=== PATIENT | male | born 1965 | race Caucasian/White ===

== ENCOUNTER 2017-08-04 11:06 | Inpatient (IN) | payer OTHER ==
[2017-08-04 11:52] VITALS: BMI 28.0
[2017-08-04] MEDS: HumaLOG 300 UNITS/3 ML VIAL SC SCH (17:10)
[2017-08-04] MEDS ORDERED: Communication Order-Pharmacy FS ONE (17:13)
[2017-08-04] MEDS ORDERED: Diazepam 5 MG TAB PO PRN (17:13)
--- NOTE | 2017-08-04 18:24 | RAD ---
CHEST ONE VIEW 08/04/17 HISTORY: 51-year-old male for preoperative evaluation for open heart surgery. Monitor leads overlie the chest. Heart size is normal. There is some healed rib fractures bilaterally . No confluent pneumonia, overt edema or pleural effusion. IMPRESSION: No significant acute intrathoracic disease. Healed rib fractures bilaterally. POS: [facility]
[2017-08-04] MEDS: Insulin Detemir 100 UNITS/ML 50 UNITS in Pre-Filled Syringe SC SCH (20:41)
[2017-08-04] MEDS: Atorvastatin Calcium 10 MG TAB PO SCH (20:42)
--- NOTE | 2017-08-05 01:59 | CON ---
DATE OF CONSULTATION: 08/04/2017 REASON FOR CONSULTATION: Evaluate the patient for coronary artery bypass grafting. HISTORY OF PRESENT ILLNESS: Mr. Chiu is a 51-year-old type 1 diabetic who has been experiencing s ome chest discomfort and arm discomfort. He underwent cardiac catheterization at the outpatient [facility] today revealing a diminutive nondominant right coronary artery. He has a significant left main st enosis along with LAD and circumflex stenoses. Potential bypass targets include LAD, diagonal and OM . PAST MEDICAL HISTORY: 1. Diabetes mellitus. 2. Hypertension. 3. Hyperlipidemia. PAST SURGICAL HISTORY: None. HOME MEDICATIONS: 1. Metformin 1000 mg b.i.d. 2. Aspirin 81 mg daily. 3. Zocor 20 mg at bedtime. 4. Synthroid 75 mcg daily. 5. Metoprolol 100 mg daily. 6. Lisinopril/hydrochlorothiazide 20/25 daily. 7. NovoLog 30 units t.i.d. 8. Levemir insulin 50 units b.i.d. ALLERGIES: None. SOCIAL HISTORY: He does not use tobacco. 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 REVIEW OF SYSTEMS: Ten point review of systems performed and is negative except as above. PHYSICAL EXAMINATION: VITAL SIGNS: Height 5 feet 8 inches, weight 184 pounds, BSA is 2. Temperature is 97.9, pulse is 75 and regular, blood pressure 139/66. HEENT: Sclerae nonicteric. Pupils equal, round bilaterally. NECK: Supple, without bruit. CHEST: Clear bilaterally. HEART: Rhythm is regular, without murmur. ABDOMEN: Soft, nontender with no masses. EXTREMITIES: No cyanosis, clubbing, edema. VASCULAR: He has palpable carotid, radial, femoral, and dorsalis pedis pulses bilaterally. VENOUS: There are no venous varicosities or venous stasis changes. PSYCHIATRIC: Patient is awake, alert, and oriented to person, place and time. LABORATORIES: Currently pending. Chest x-ray shows no dominant lung mass, lungs are well expanded bilaterally. ASSESSMENT AND PLAN: This is a pleasant 51-year-old gentleman with type 1 diabetes, hypertension, an d hyperlipidemia. His ejection fraction is preserved at approximately 60%-65%. He has severe left-s ided disease with a diminutive nondominant right coronary artery. I have discussed coronary artery b ypass grafting with the patient. He is agreeable to proceed. We will plan for surgery on Monday.
[2017-08-05 05:05] LABS: #Basophils 0.1 thou/uL (0.0-0.2); #Eosinphils 0.2 thou/uL (0.0-0.7); #Lymphocytes 3.7 thou/uL (1.20-3.40); #Monocytes 0.9 thou/uL (0.11-0.59); #Neutrophils 3.4 thou/uL (1.40-6.50); %Basophils 0.7 % (0.0-1.0); %Eosinophils 1.9 % (0.0-10.0); %Lymphocytes 45.2 % (21.0-51.0); %Neutrophils 41.2 % (42.0-75.0); Hemoglobin 14.6 g/dL (14.0-18.0); Mean Corpuscular HGB CONC 33.3 g/dL (32.0-36.0); Mean Corpuscular Hemoglobin 30.6 pg (27.0-31.0); Mean Corpuscular Volume 91.7 fl (80.0-94.0); Mean Platelet Volume 7.9 fL (7.4-10.4); Platelet Count 230 thou/uL (130-400); RBC Distribution Width 11.8 % (11.5-14.5); Red Blood Cell (RBC) Count 4.76 mill/uL (4.70-6.10); White Blood Cell (WBC) Count 8.2 thou/uL (4.8-10.8)
[2017-08-05 05:08] LABS: INR-International Normal Ratio 1.1; PTT 27.7 SEC (22.9-36.1); Prothrombin Time 14.6 SEC (12.0-14.7)
[2017-08-05] MEDS: Levothyroxine Sodium 75 MCG TAB PO SCH (05:16)
[2017-08-05 05:21] LABS: ALT (SGPT) 57 U/L (8-55); AST (SGOT) 43 U/L (5-34); Albumin 4.1 g/dL (3.5-5.0); Alkaline Phosphatase 58 U/L (40-150); Anion Gap 11 mmol/L (10-20); BUN (Urea Nitrogen) 14 mg/dL (8.4-25.7); Calc. Creatinine Clearance 92 mL/min (70-130); Calcium 9.3 mg/dL (7.8-10.44); Carbon Dioxide 28 mmol/L (22-29); Chloride 100 mmol/L (98-107); Estimated GFR-MDRD 71; Globulin 2.9 g/dL (2.4-3.5); Glucose 165 mg/dL (70-105); Magnesium 1.9 mg/dL (1.6-2.6); Phosphorus 4.2 mg/dL (2.3-4.7); Potassium 4.2 mmol/L (3.5-5.1); Sodium 135 mmol/L (136-145)
[2017-08-05] MEDS: HumaLOG 300 UNITS/3 ML VIAL SC SCH ×3 (08:18→17:08)
[2017-08-05] MEDS: Lisinopril/Hydrochlorothiazide 20/25 mg Tablet PO SCH (08:19)
[2017-08-05] MEDS: Loratadine 10 MG TAB PO SCH (08:22)
[2017-08-05] MEDS ORDERED: Prevnar 13-Val Conj/PF 0.5 ML SYRINGE IM ONE (09:00)
[2017-08-05] MEDS ORDERED: Insulin Detemir 100 UNITS/ML 50 UNITS in Pre-Filled Syringe SC SCH (09:15)
[2017-08-05] MEDS: Insulin Detemir 100 UNITS/ML 50 UNITS in Pre-Filled Syringe SC SCH ×2 (09:37→20:56)
--- NOTE | 2017-08-05 10:20 | HP ---
DATE OF SERVICE: 08/04/2017 CHIEF COMPLAINT: Unstable angina. HISTORY OF PRESENT ILLNESS: Mr. Chiu is a very pleasant 51-year-old white gentleman who comes to the hospital for direct admission for unstable angina. He had a schedule heart catheterization [facility] today that showed multivessel disease including severe left circumflex disease and severe left ofelia n disease. He has been having chest pains at rest at night, so he will need a bypass surgery and it safer to be in the hospital in this setting. Mr. Chiu currently is chest pain free and doing well . He had a right radial access catheterization, which is unremarkable at this time and without issue s. PAST MEDICAL HISTORY: 1. Hypertension. 2. Hypothyroidism. 3. Hyperlipidemia. 4. Type 1 diabetes, since he was 13 years old. ALLERGIES: No known drug allergies. FAMILY HISTORY: Father has some sort of malignancy. Mother with diabetes, grandfather from mother's side has had an UT at an early age and had hypertension. Grandmother from mother's side has stroke. Grandfather from father's side has UT as well. SOCIAL HISTORY: No alcohol, tobacco or drugs. SURGICAL HISTORY: None. REVIEW OF SYSTEMS: A 12-point review of systems was done and is all negative unless stated in the hi story of present illness except stated in the HPI. OUTPATIENT MEDICATIONS: Include, 1. Zyrtec 10 mg a day. 2. Aspirin 81 mg a day. 3. Metformin 1000 mg p.o. b.i.d. 4. Zocor 20 mg at bedtime. 5. Synthroid 75 mcg a day. 6. Metoprolol succinate 100 mg a day. 7. Lisinopril/hydrochlorothiazide 20/25 mg a day. 8. NovoLog 30 units subcu t.i.d. 9. Levemir 15 units subcu b.i.d. PHYSICAL EXAMINATION: VITAL SIGNS: Temperature 97.2, blood pressure 132/93, pulse 87, respiration rate 18, satting 99% on room air. He is 68 inches tall and he weighs 190 pounds. GENERAL: Awake, alert and oriented x3, in no distress. HEENT: Normocephalic, atraumatic. NECK: Supple. LUNGS: Clear. CARDIOVASCULAR: S1, S2, no S3, S4, no murmurs, no rubs. ABDOMEN: Soft with positive bowel sounds. EXTREMITIES: No edema. SKIN: Warm and dry. LABORATORY DATA: Laboratory work was reviewed. CBC, CMP, PT/INR, was reviewed. ASSESSMENT: 1. Severe multivessel coronary artery disease. 2. Unstable angina. 3. Type 1 diabetes. 4. Hyperlipidemia. 5. Hypertension. PLAN: 1. CT surgery consultation for evaluation of possible coronary artery bypass grafting. We will need a CURTIS to the LAD, a vein to circumflex. His RCA is severely diffusely diseased and I doubt that it would be a good target, but we will defer to CT surgery for this assessment. 2. Continue inpatient until surgery for instability of symptoms. 3. Low risk for deep venous thrombosis at this time. 4. Full code.
--- NOTE | 2017-08-05 17:22 | PDOC.CTH ---
Cardiology Progress Note - Subjective He is doing well. No chest pain, SOB. - Objective Vital Signs Temp Pulse Resp BP BP Pulse Ox 08/05/17 12:00 97.2 F L 88 17 138/82 95 08/05/17 08:19 76 135/83 08/05/17 08:00 98.1 F 76 18 135/83 94 L Weight 182 lb 9.6 oz 08/04/17 08/05/17 08/06/17 06:59 06:59 06:59 Intake Total 2720 480 Output Total 3500 Balance -780 480 - Physical Examination General/Neuro: alert & oriented x3, NAD Neck: no JVD present Lungs: CTA, unlabored respirations Heart: RRR Abdomen: NT/ND Extremities: other: (no edema) - Telemetry Telemetry Rhythm: NSR - Labs Result Diagrams: 08/05/17 04:42 08/05/17 04:42 - Assessment/Plan 1. Unstable angina 2. CAD 3. T1DM 4. HTN PLAN: - Continue home meds. - Plan on CABG monday.
[2017-08-05] MEDS: Atorvastatin Calcium 10 MG TAB PO SCH (20:47)
[2017-08-06] MEDS: Levothyroxine Sodium 75 MCG TAB PO SCH (06:17)
[2017-08-06] MEDS: Insulin Detemir 100 UNITS/ML 50 UNITS in Pre-Filled Syringe SC SCH ×2 (08:04→20:26)
[2017-08-06] MEDS: Loratadine 10 MG TAB PO SCH (08:05)
[2017-08-06] MEDS: Lisinopril/Hydrochlorothiazide 20/25 mg Tablet PO SCH (08:05)
[2017-08-06] MEDS: HumaLOG 300 UNITS/3 ML VIAL SC SCH ×4 (08:08→22:30)
[2017-08-06] MEDS ORDERED: Docusate 100 MG CAP PO PRN (16:36)
--- NOTE | 2017-08-06 16:38 | PDOC.CTH ---
Cardiology Progress Note - Subjective No new issues. No chest pain. - Objective Vital Signs Temp Pulse Resp BP BP Pulse Ox 08/06/17 12:00 97.9 F 82 19 138/75 95 08/06/17 08:05 80 140/79 08/06/17 08:00 98.2 F 80 18 140/79 94 L Weight 180 lb 14.4 oz 08/05/17 08/06/17 08/07/17 06:59 06:59 06:59 Intake Total 2720 3190 Output Total 3500 4450 Balance -780 -1260 - Physical Examination General/Neuro: alert & oriented x3, NAD Neck: no JVD present Lungs: CTA, unlabored respirations Heart: RRR Abdomen: NT/ND Extremities: other: (no edema.) - Telemetry Telemetry Rhythm: NSR - Labs Result Diagrams: 08/05/17 04:42 08/05/17 04:42 - Assessment/Plan 1. Unstable angina 2. CAD 3. T1DM 4. HTN 5. Constipation. PLAN: - Continue home meds. - Will add docusate - Plan on CABG tomorrow.
[2017-08-06] MEDS ORDERED: Docusate 100 MG CAP PO SCH (17:00)
[2017-08-06] MEDS: Atorvastatin Calcium 10 MG TAB PO SCH (20:28)
[2017-08-06] MEDS ORDERED: CEFAZOLIN/Water 2 GM/20 ML SYRINGE SLOW IVP SCH (23:30)
[2017-08-07] MEDS: Levothyroxine Sodium 75 MCG TAB PO SCH (05:08)
[2017-08-07] MEDS: Lisinopril/Hydrochlorothiazide 20/25 mg Tablet PO SCH (05:08)
[2017-08-07] MEDS ORDERED: CEFAZOLIN/Water 2 GM/20 ML SYRINGE ONE (06:12)
[2017-08-07] MEDS ORDERED: Heparin 10,000 UNITS/1 ML VIAL 30,000 UNITS in Sodium Chloride 0.9% 1,000 ML FS SCH (06:45)
[2017-08-07] MEDS ORDERED: Fentanyl 250 MCG/5 ML VIAL ONE (07:11)
[2017-08-07] MEDS ORDERED: Insulin Regular 300 UNITS/3 ML VIAL ONE (07:12)
[2017-08-07] MEDS ORDERED: Midazolam HCl 5 mg/5 ml Vial ONE (07:12)
[2017-08-07] MEDS ORDERED: Albumin 5% 0 ML ONE (08:25)
[2017-08-07] MEDS ORDERED: Phenylephrine HCL 10 MG/ML VIAL ONE (08:28)
[2017-08-07] MEDS ORDERED: hydrALAZINE 20 MG/ML VIAL SLOW IVP PRN (10:29)
[2017-08-07] MEDS ORDERED: Bisacodyl 10 MG SUPP PR PRN (10:29)
[2017-08-07] MEDS ORDERED: HYDROcodone/Acetaminophen 5/325 mg Tablet PO PRN ×2 (10:29)
[2017-08-07] MEDS ORDERED: Guaifenesin DM 100-10/5 ML UDCUP PO PRN (10:29)
[2017-08-07] MEDS ORDERED: Potassium Chloride 20 MEQ/100 ML PREMIX BAG IVPB PRN (10:29)
[2017-08-07] MEDS ORDERED: Hetastarch 6% 500 ML 500 ML IVPB PRN (10:29)
[2017-08-07] MEDS ORDERED: Promethazine HCl 25 MG/ML VIAL IM PRN (10:29)
[2017-08-07] MEDS ORDERED: Post-Op Insulin Drip Protocol IVPB ONE (10:29)
[2017-08-07] MEDS ORDERED: Norepinephrine 8 MG/0.9% NS 250 ML IVPB PRN (10:29)
[2017-08-07] MEDS ORDERED: Acetaminophen 325 MG TAB PO PRN (10:29)
[2017-08-07] MEDS ORDERED: Ondansetron HCl/PF 4 MG/2 ML Vial IVP PRN (10:29)
[2017-08-07] MEDS ORDERED: Nitroglycerin 50 MG/250 ML BOT 250 ML IVPB PRN (10:29)
[2017-08-07] MEDS ORDERED: Mag-Al 1200 mg/1200 mg/30 ML UDCUP PO PRN (10:29)
[2017-08-07] MEDS ORDERED: DOPamine 400 MG/D5W 250 ML 250 ML IVPB PRN (10:29)
[2017-08-07] MEDS ORDERED: Bisacodyl 5 MG TAB PO PRN (10:29)
[2017-08-07] MEDS ORDERED: Fentanyl 100 MCG/2 ML VIAL SLOW IVP PRN (10:29)
[2017-08-07] MEDS ORDERED: Magnesium 2 GM/NS 0.9% 100 ML 2 GM in Premix Bag 1 BAG IVPB SCH (10:30)
[2017-08-07] MEDS ORDERED: Dextrose 5% in Water 1,000 ML IV PRN (10:55)
[2017-08-07] MEDS ORDERED: Insulin Regular 300 UNITS/3 ML VIAL SC PRN (10:55)
[2017-08-07] MEDS ORDERED: Dextrose 50% Abboject 50 ML SYRINGE SLOW IVP PRN (10:55)
[2017-08-07] MEDS ORDERED: Morphine 4 MG/ML VIAL SLOW IVP PRN (11:00)
[2017-08-07 11:04] LABS: pH, Arterial 7.41 (7.35-7.45)
[2017-08-07 11:05] LABS: Actual Bicarbonate (HCO3a) 21.4 mEq/L (22-26); Base Excess (BEa) -2.5 mEq/L (0 (+/-) 2.5); CO2 Tension 34.1 mmHg (35.0-45.0); Hematocrit-ABG 34.7 % (42.0-52.0); Hemoglobin (Hb) 11.2 g/dL (14.0-18.0); O2 Tension (PaO2) 147.8 mmHg (80.0-100.0)
[2017-08-07 11:06] LABS: Calcium, Ionized 1.1 mmol/L (1.12-1.30); Puncture Site ART LINE
[2017-08-07] MEDS: Ketorolac Tromethamine 30 MG/ML VIAL IVP SCH ×3 (11:06→23:57)
[2017-08-07 11:07] LABS: Hemoglobin 11.4 g/dL (14.0-18.0); Mean Corpuscular Volume 91.1 fl (80.0-94.0); Mean Platelet Volume 7.9 fL (7.4-10.4); Platelet Count 224 thou/uL (130-400); RBC Distribution Width 11.5 % (11.5-14.5); Red Blood Cell (RBC) Count 3.68 mill/uL (4.70-6.10); White Blood Cell (WBC) Count 22.4 thou/uL (4.8-10.8)
[2017-08-07 11:07] LABS: ALV-art Gradient 237.375 (0-20)
[2017-08-07] MEDS: D5 1/2 NS w/20 mEq KCL 1,000 ML IV SCH (11:07)
[2017-08-07 11:16] LABS: INR-International Normal Ratio 1.4; PTT 30.9 SEC (22.9-36.1); Prothrombin Time 17.7 SEC (12.0-14.7)
[2017-08-07 11:24] LABS: Anion Gap 11 mmol/L (10-20); BUN (Urea Nitrogen) 14 mg/dL (8.4-25.7); Calc. Creatinine Clearance 116 mL/min (70-130); Calcium 8.2 mg/dL (7.8-10.44); Carbon Dioxide 22 mmol/L (22-29); Chloride 101 mmol/L (98-107); Estimated GFR-MDRD Greater than 90; Glucose 151 mg/dL (70-105); Potassium 3.9 mmol/L (3.5-5.1); Sodium 130 mmol/L (136-145)
[2017-08-07 11:29] LABS: Band 15 % (5-11); Eosinophils 1 % (0-10); Lymphocytes 7 % (21-51); MDiff Complete? YES; Metamyelocyte 1 % (0-0); Monocytes 6 % (0-10); Neutrophil 70 % (42-75); RBC Morphology Normal
--- NOTE | 2017-08-07 11:47 | OP ---
DATE OF PROCEDURE: 08/07/2017 PREOPERATIVE DIAGNOSES: Coronary disease/diabetes mellitus/hypertension/ hyperlipidemia. POSTOPERATIVE DIAGNOSES: Coronary disease/diabetes mellitus/hypertension/ hyperlipidemia. PROCEDURE: Coronary artery bypass grafting x3 - 1) Left internal mammary artery to 1.5 mm mid LAD - - good conduit and small diffusely diseased target. 2) Reverse saphenous vein 1.0 mm diagonal - goo d conduit with small diffusely diseased target. 3) Reverse saphenous vein 1.0 mm OM, good conduit w ith small diffusely diseased target. Note, none of these targets are redo targets. SURGEONS: Dr. Niranjan Leger and Dr. Ricardo Plunkett PUMP TIME: 56 minutes. CROSS-CLAMP TIME: 35 minutes. LOW CORE TEMP: 32-degree Celsius. HOT DIP PLATING SUPERVISOR: Damien Dooley. DRAINS: 24-Chadian chest tubes x2. DRIPS: None. TRANSFUSIONS: None. PROCEDURE IN DETAIL: After consent was obtained, the patient was brought to the operating room and p laced supine position on the operating room table. Appropriate anesthesia monitor was placed and ge neral endotracheal anesthesia induced. Chest, arms and legs were prepped and draped in usual sterile fashion. Greater saphenous vein was harvested from the left thigh utilizing an endoscopic technique . Wounds irrigated and closed in layers. The annulotomy was performed. Left internal mammary arter y was harvested as a pedicle graft. The patient was systemically heparinized. Distal pedicle was di vided and infused with papaverine. Thymic fat and pericardium ____ electrocautery. Pericardial stay sutures were placed. Aortic and atrial cannulation was performed. After adequate heparinization, r etrograde prime was performed. The patient was placed on cardiopulmonary bypass. Distal targets wer e marked. Aortic cross-clamp was applied and antegrade sanguinous cardioplegic arrest obtained. One liter of antegrade cold [place] cardioplegia was given. Topical cold solution was used. Reverse s aphenous vein was anastomosed to the OM1 and ____ with running 7-0 Prolene suture. A 1 mm probe dila ita the anastomosis, both proximally and distally. Anastomosis was tested and was hemostatic. Rever se saphenous vein anastomosed to the diagonal end-to side vascular ring with 7.0 Prolene suture. A 1 mm probe dilated the anastomosis proximally and distally. Mammary artery was brought through a wind ow in the pericardium and anastomosed to the mid-LAD in end-to-side fashion with running 7-0 Prolene suture. On release of mammary clamps, good hooding anastomosis and good distal flow. Pedicle secure d with interrupted 6-0 Prolene suture. Cross-clamp was removed and partial occluding clamp placed. Saphenous vein to the diagonal was anastomosed the aortic root. Saphenous vein to the OM was anastom osed to side wall of the diagonal graft. The cross-clamp was removed and grafts deaired. Anastomose s were inspected for hemostasis, which was good. The patient was warmed and weaned from cardiopulmon michelle bypass. After resumption of sinus rhythm, good hemodynamics, and temperature greater than 36.5, bypass was discontinued. Transfusions were given. Protamine was administered. Decannulation was pe rformed and pursestring sutures secured. Vancomycin paste was placed on the sternal edges. After ad equate hemostasis had been obtained, 24-Chadian chest tubes were placed in mediastinum. Sternum was t reated with platelet-rich plasma, and closed with #7 wire. Sternum was irrigated, treated with plate let-poor plasma, and closed in multiple layers. The patient tolerated the procedure well and was tra nsferred to the Intensive Care Unit in stable, but critical condition. Needle, sponge, and instrumen t counts were all reported as correct at the end of the procedure.
[2017-08-07] MEDS ORDERED: Cardioplegic Soln 1,000 ML BAG ONE (12:05)
[2017-08-07] MEDS ORDERED: ePHEDrine/0.9% NaCl/PF SYRINGE 50 mg/10 ml ONE (12:05)
[2017-08-07] MEDS ORDERED: Calcium Chloride 1 GM/10 ML Abboject SYRINGE ONE (12:05)
[2017-08-07] MEDS ORDERED: PHENYLEPHRINE-NS 100 MCG/ML 10 ML SYRINGE ONE (12:05)
[2017-08-07] MEDS ORDERED: Papaverine 60 MG/2 ML VIAL ONE (12:05)
[2017-08-07] MEDS ORDERED: Magnesium 5 GM/10 ML VIAL ONE (12:05)
[2017-08-07] MEDS ORDERED: Heparin 5,000 UNITS/ML VIAL ONE (12:05)
[2017-08-07] MEDS ORDERED: Sodium Bicarb 50 MEQ/50 ML VIAL ONE (12:05)
[2017-08-07] MEDS ORDERED: Lidocaine 1% PF 5 ML VIAL ONE (12:05)
[2017-08-07] MEDS ORDERED: Protamine Sulfate 250 MG/25 ML VIAL ONE (12:05)
[2017-08-07] MEDS ORDERED: Potassium Chloride 60 MEQ/30 ML VIAL ONE (12:05)
[2017-08-07] MEDS ORDERED: Albumin 25% 25 GM/100 ML BOT ONE (12:05)
[2017-08-07] MEDS ORDERED: Aminocaproic Acid 5 GM/20 ML VIAL ONE (12:05)
[2017-08-07] MEDS ORDERED: Thrombin 5000 UNITS/5 ML VIAL ONE (12:05)
[2017-08-07] MEDS ORDERED: Lidocaine 2% PF 100 mg/5 ml Syringe ONE (12:05)
[2017-08-07] MEDS ORDERED: Heparin 30,000 units/30 ml VIAL ONE (12:05)
[2017-08-07] MEDS ORDERED: PROPOFOL 200 MG/20 ML VIAL ONE (12:05)
--- NOTE | 2017-08-07 13:04 | RAD ---
PORTABLE AP CHEST RADIOGRAPH: Date: 08-07-17 History: Post open heart surgery. Comparison: 08-04-17 FINDINGS: There have been interval post-surgical changes related to CABG. Endotracheal tube is noted in place w ith the tip overlying the T4 vertebral body and above the level of the sandoval. Right subclavian centr al venous catheter is noted in place with the tip overlying the expected location of the cavoatrial j unction. Mediastinal drain is noted in place. There is atelectasis present at the left lung base and in the right midlung zone. Lungs are otherwise clear. No pneumothorax or pleural effusion is apprecia ita. No other interval change. IMPRESSION: Interval post-surgical changes related to CABG with lines and tubes in place. POS: [facility]
[2017-08-07] MEDS: Fentanyl 100 MCG/2 ML VIAL SLOW IVP PRN (14:07)
[2017-08-07] MEDS: CEFAZOLIN/Water 2 GM/20 ML SYRINGE SLOW IVP SCH ×2 (14:15→21:12)
--- NOTE | 2017-08-07 14:20 | PDOC.CTH ---
Cardiology Progress Note - Subjective He had surgery earlier today. He is intubated but awake and following commands. - Objective Vital Signs Temp Pulse Resp BP BP Pulse Ox 08/07/17 14:00 97.9 F 08/07/17 13:40 89 10 L 98 08/07/17 13:00 97.5 F L 08/07/17 12:00 97.6 F 10 L 08/07/17 11:45 97.5 F L 85 100 08/07/17 11:00 97.5 F L 08/07/17 10:45 81 108/57 L 08/07/17 05:08 82 08/07/17 04:00 98.4 F 82 18 122/64 98 Weight 186 lb 6.4 oz 08/06/17 08/07/17 08/08/17 06:59 06:59 06:59 Intake Total 3190 960 500 Output Total 4450 2250 490 Balance -1260 -1290 10 - Physical Examination General/Neuro: other: (Intubated) Neck: no JVD present Lungs: unlabored respirations Heart: RRR, other: (2 component rub) Abdomen: NT/ND Extremities: + edema B (1+) - Telemetry Telemetry Rhythm: NSR - Labs Result Diagrams: 08/07/17 10:56 08/07/17 10:56 - Assessment/Plan 1. Unstable angina 2. S/P CABG 3. Type 1 DM 4. HTN 5. Constipation. PLAN: - Continue post op care. - Aspirin and statin for life. - ACEI and BB once BP allows.
[2017-08-07 16:53] LABS: Hemoglobin 11.8 g/dL (14.0-18.0)
[2017-08-07 17:07] LABS: Potassium 4.3 mmol/L (3.5-5.1)
[2017-08-07] MEDS ORDERED: Famotidine/PF 20 mg/2ml Vial SLOW IVP SCH (21:00)
[2017-08-07] MEDS: Famotidine 40 MG/4 ML VIAL SLOW IVP SCH (21:11)
[2017-08-08] MEDS: Fentanyl 100 MCG/2 ML VIAL SLOW IVP PRN (00:52)
[2017-08-08 04:53] LABS: Anion Gap 9 mmol/L (10-20); BUN (Urea Nitrogen) 15 mg/dL (8.4-25.7); Calc. Creatinine Clearance 100 mL/min (70-130); Calcium 7.9 mg/dL (7.8-10.44); Carbon Dioxide 24 mmol/L (22-29); Chloride 104 mmol/L (98-107); Estimated GFR-MDRD 76; Glucose 168 mg/dL (70-105); Potassium 4.1 mmol/L (3.5-5.1); Sodium 133 mmol/L (136-145)
[2017-08-08 04:55] LABS: #Lymphocytes 2.4 thou/uL (1.20-3.40); #Neutrophils 6.4 thou/uL (1.40-6.50); %Basophils 0.2 % (0.0-1.0); %Eosinophils 0.1 % (0.0-10.0); %Lymphocytes 24.5 % (21.0-51.0); %Monocytes 10.4 % (0.0-10.0); %Neutrophils 64.8 % (42.0-75.0); Hemoglobin 10.7 g/dL (14.0-18.0); Mean Corpuscular HGB CONC 34.6 g/dL (32.0-36.0); Mean Corpuscular Hemoglobin 31.3 pg (27.0-31.0); Mean Corpuscular Volume 90.5 fl (80.0-94.0); Mean Platelet Volume 8.2 fL (7.4-10.4); Platelet Count 166 thou/uL (130-400); RBC Distribution Width 11.6 % (11.5-14.5); Red Blood Cell (RBC) Count 3.41 mill/uL (4.70-6.10); White Blood Cell (WBC) Count 9.9 thou/uL (4.8-10.8)
[2017-08-08] MEDS: Ketorolac Tromethamine 30 MG/ML VIAL IVP SCH ×3 (06:13→17:25)
[2017-08-08] MEDS: CEFAZOLIN/Water 2 GM/20 ML SYRINGE SLOW IVP SCH (06:22)
[2017-08-08] MEDS ORDERED: Dextrose 50% Abboject 50 ML SYRINGE SLOW IVP PRN (07:56)
[2017-08-08] MEDS: Aspirin 325 MG TAB PO SCH ×2 (07:56→08:01)
[2017-08-08] MEDS ORDERED: Dextrose 5% in Water 1,000 ML IV PRN (07:56)
--- NOTE | 2017-08-08 07:57 | RAD ---
PORTABLE AP CHEST XRAY: DATE: 08/08/17. HISTORY: Post open heart surgery. COMPARISON: 08/07/17. FINDINGS: The endotracheal tube has been removed. Right subclavian central venous catheter is stable in positi on with the tip overlying the expected location of the right atrium. Mediastinal drain is noted in p lace. Postsurgical changes related to median sternotomy are again present. The shallow depth of ins piration and portable technique accentuate the cardiac silhouette and bronchovascular markings. Ther e is atelectasis present at the medial aspect of each lung base. Remote right-sided rib fracture is again seen. There is no pneumothorax or pleural effusion identified. There does appear to be a left -sided thoracostomy tube in place. No other interval change. IMPRESSION: Interval removal of the endotracheal tube with mild improvement in interstitial densities in the karla hilar regions bilaterally. The chest is otherwise stable. POS: [facility]
[2017-08-08] MEDS: Famotidine 40 MG/4 ML VIAL SLOW IVP SCH (07:58)
[2017-08-08] MEDS: Magnesium 2 GM/NS 0.9% 100 ML 2 GM in Premix Bag 1 BAG IVPB SCH (08:01)
[2017-08-08] MEDS ORDERED: Insulin Detemir 100 UNITS/ML 40 UNITS in Pre-Filled Syringe 1 EACH SC SCH ×2 (09:00→21:00)
[2017-08-08] MEDS: Docusate 100 MG CAP PO SCH ×2 (09:26→20:42)
[2017-08-08] MEDS: HumaLOG 300 UNITS/3 ML VIAL SC PRN ×3 (11:57→20:45)
[2017-08-08] MEDS: D5 1/2 NS w/20 mEq KCL 1,000 ML IV SCH (12:45)
--- NOTE | 2017-08-08 14:30 | EKG ---
Test Reason : POST CABG Blood Pressure : / mmHG Vent. Rate : 073 BPM Atrial Rate : 073 BPM P-R Int : 146 ms QRS Dur : 082 ms QT Int : 436 ms P-R-T Axes : 053 030 -37 degrees QTc Int : 480 ms Normal sinus rhythm T wave abnormality, consider inferior ischemia Prolonged QT Abnormal ECG No previous ECGs available Confirmed by DR. Bill HUITRON ([id number]) on 08/08/2017 2:30:24 PM Referred By: Jatin MARTINS Confirmed By:DR. Bill HUITRON
--- NOTE | 2017-08-08 18:15 | PDOC.CTH ---
Cardiology Progress Note - Subjective He is doing well. He had his CT pulled out today and feels better. - Objective Vital Signs Temp Pulse Resp Pulse Ox 08/08/17 17:00 98.7 F 08/08/17 13:38 90 18 100 08/08/17 12:00 98.9 F 08/08/17 08:21 97 23 H 100 08/08/17 08:00 99.0 F 97 23 H 98 08/08/17 07:00 99.0 F Weight 188 lb 7.924 oz 08/07/17 08/08/17 08/09/17 06:59 06:59 06:59 Intake Total 960 1109 1612 Output Total 2250 1895 870 Balance -1290 -786 742 - Physical Examination General/Neuro: alert & oriented x3, NAD Neck: no JVD present Lungs: CTA, unlabored respirations Heart: RRR Abdomen: NT/ND Extremities: + edema B (1+) - Telemetry Telemetry Rhythm: NSR - Labs Result Diagrams: 08/08/17 04:18 08/08/17 04:18 - Assessment/Plan 1. Unstable angina 2. S/P CABG, CURTIS to LAD, Vein to OM, Vein to diagonal 3. Type 1 DM 4. HTN 5. Constipation. PLAN: - Continue post op care. - Aspirin and statin for life. - ACEI and BB once BP allows.
[2017-08-08] MEDS: Famotidine 20 MG TAB PO SCH (20:42)
[2017-08-08] MEDS: Insulin Glargine 40 UNITS in Pre-Filled Syringe 1 EACH SC SCH (20:42)
[2017-08-09] MEDS: Ketorolac Tromethamine 30 MG/ML VIAL IVP SCH ×5 (00:22→23:39)
[2017-08-09] MEDS: HumaLOG 300 UNITS/3 ML VIAL SC PRN ×5 (06:29→21:22)
[2017-08-09 06:43] LABS: #Lymphocytes 1.9 thou/uL (1.20-3.40); #Monocytes 1.3 thou/uL (0.11-0.59); #Neutrophils 8.7 thou/uL (1.40-6.50); %Basophils 0.2 % (0.0-1.0); %Eosinophils 0.3 % (0.0-10.0); %Lymphocytes 15.8 % (21.0-51.0); %Monocytes 11.2 % (0.0-10.0); %Neutrophils 72.5 % (42.0-75.0); Mean Corpuscular HGB CONC 34.2 g/dL (32.0-36.0); Mean Corpuscular Hemoglobin 31.2 pg (27.0-31.0); Mean Corpuscular Volume 91.4 fl (80.0-94.0); Mean Platelet Volume 8.3 fL (7.4-10.4); Platelet Count 158 thou/uL (130-400); RBC Distribution Width 11.6 % (11.5-14.5); Red Blood Cell (RBC) Count 3.53 mill/uL (4.70-6.10)
[2017-08-09 06:56] LABS: Anion Gap 12 mmol/L (10-20); BUN (Urea Nitrogen) 18 mg/dL (8.4-25.7); Calc. Creatinine Clearance 100 mL/min (70-130); Calcium 8.4 mg/dL (7.8-10.44); Carbon Dioxide 25 mmol/L (22-29); Chloride 101 mmol/L (98-107); Estimated GFR-MDRD 76; Glucose 226 mg/dL (70-105); Potassium 4.6 mmol/L (3.5-5.1); Sodium 133 mmol/L (136-145)
[2017-08-09] MEDS ORDERED: Artificial Tears 18 DROP/0.9 ML EA EYE PRN (08:12)
[2017-08-09] MEDS ORDERED: Bisacodyl 10 MG SUPP PR PRN (08:12)
[2017-08-09] MEDS ORDERED: Guaifenesin DM 100-10/5 ML UDCUP PO PRN (08:12)
[2017-08-09] MEDS ORDERED: Communication Order-Pharmacy FS SCH (08:12)
[2017-08-09] MEDS ORDERED: Zolpidem Tartrate 5 MG TAB PO PRN (08:12)
[2017-08-09] MEDS ORDERED: Mineral Oil ENEMA PR PRN (08:12)
[2017-08-09] MEDS ORDERED: Nitroglycerin 0.4 MG TAB (25 Tab Bottle) SL PRN (08:12)
[2017-08-09] MEDS ORDERED: Bisacodyl 5 MG TAB PO PRN (08:12)
[2017-08-09] MEDS ORDERED: diphenhydrAMINE 25 MG CAP PO PRN (08:12)
[2017-08-09] MEDS ORDERED: Mag-Al 1200 mg/1200 mg/30 ML UDCUP PO PRN (08:12)
--- NOTE | 2017-08-09 08:35 | PDOC.CTH ---
Cardiology Progress Note - Subjective He is doing better today. Chest is sore. Passing gas. - Objective Vital Signs Temp 08/09/17 08:00 98.5 F Weight 187 lb 2.759 oz 08/08/17 08/09/17 08/10/17 06:59 06:59 06:59 Intake Total 1109 2011 240 Output Total 1895 2155 240 Balance -786 -143 0 - Physical Examination General/Neuro: alert & oriented x3, NAD Neck: no JVD present Lungs: unlabored respirations Heart: RRR Abdomen: NT/ND Extremities: + edema B (1+) - Telemetry Telemetry Rhythm: S tach - Labs Result Diagrams: 08/09/17 06:36 08/09/17 06:36 - Assessment/Plan 1. Unstable angina 2. S/P CABG, CURTIS to LAD, Vein to OM, Vein to diagonal 3. Type 1 DM 4. HTN 5. Constipation. PLAN: - Continue post op care. - Aspirin and statin for life. - Low dose BB today. - Increase PT as tolerated. - May transfer to telemetry floor.
[2017-08-09] MEDS: Docusate 100 MG CAP PO SCH ×2 (08:37→21:20)
[2017-08-09] MEDS: Magnesium 2 GM/NS 0.9% 100 ML 2 GM in Premix Bag 1 BAG IVPB SCH (08:38)
[2017-08-09] MEDS: Famotidine 20 MG TAB PO SCH ×2 (08:40→21:20)
[2017-08-09] MEDS: Insulin Glargine 40 UNITS in Pre-Filled Syringe 1 EACH SC SCH ×2 (08:41→21:20)
[2017-08-09] MEDS: Metoprolol Tartrate 25 MG TAB PO SCH ×2 (08:43→21:21)
[2017-08-09] MEDS: Aspirin 325 mg Enteric Coated Tablet PO SCH (08:43)
--- NOTE | 2017-08-09 09:33 | RAD ---
CHEST 1 VIEW: Date: 08/09/17 HISTORY: Heart surgery. Follow-up. COMPARISON: 08/08/17. FINDINGS: Cardiac silhouette is magnified and upper limits of normal in size. Pulmonary vasculature unremarkabl e. Left basilar atelectasis is unchanged. Mediastinum midline with postoperative changes and a right subclavian central venous catheter. No evidence of pneumothorax. athletic monitor leads overlie the ch est. IMPRESSION: Stable postoperative appearance of the chest. POS: [facility]
[2017-08-10] MEDS: Ketorolac Tromethamine 30 MG/ML VIAL IVP SCH ×2 (05:46→12:38)
[2017-08-10] MEDS: HumaLOG 300 UNITS/3 ML VIAL SC PRN ×4 (07:58→21:22)
[2017-08-10] MEDS: Metoprolol Tartrate 25 MG TAB PO SCH ×2 (08:46→21:22)
[2017-08-10] MEDS: Famotidine 20 MG TAB PO SCH ×2 (08:46→21:20)
[2017-08-10] MEDS: Docusate 100 MG CAP PO SCH ×2 (08:46→21:20)
[2017-08-10] MEDS: Aspirin 325 mg Enteric Coated Tablet PO SCH (08:46)
[2017-08-10] MEDS: INSULIN GLARGINE SC SCH ×2 (08:47→21:21)
--- NOTE | 2017-08-10 18:20 | PDOC.CTH ---
Cardiology Progress Note - Subjective He is doing well. He has been walking without issues. He has had BM's. - Objective Vital Signs Temp Pulse Pulse Pulse Resp BP BP 08/10/17 16:00 98.6 F 96 20 08/10/17 13:14 93 89 162/74 H 137/78 08/10/17 09:57 95 94 136/78 121/67 08/10/17 08:00 98.7 F 91 20 BP BP Pulse Ox Pulse Ox Pulse Ox 08/10/17 16:00 133/68 95 08/10/17 13:14 95 93 L 08/10/17 09:57 95 93 L 08/10/17 08:00 117/71 94 L Weight 178 lb 8 oz 08/09/17 08/10/17 08/11/17 06:59 06:59 06:59 Intake Total 2011 Output Total 2155 1040 Balance -143 -800 - Physical Examination General/Neuro: alert & oriented x3, NAD Neck: no JVD present Lungs: CTA, unlabored respirations Heart: RRR Abdomen: NT/ND Extremities: + edema B (trace) - Telemetry Telemetry Rhythm: NSR - Labs Result Diagrams: 08/09/17 06:36 08/09/17 06:36 - Assessment/Plan 1. Unstable angina 2. S/P CABG, CURTIS to LAD, Vein to OM, Vein to diagonal 3. Type 1 DM 4. HTN PLAN: - Aspirin and statin for life. - Low dose BB. - Will start low dose ACEI. - Increase PT as tolerated. - Home any time from cardiac perspective,
--- NOTE | 2017-08-11 08:20 | DIS ---
DIAGNOSES: 1. Type 1 diabetes mellitus. 2. Coronary artery disease. 3. Hyperlipidemia. 4. Hypertension. PROCEDURES: 1. Cardiac catheterization. 2. Coronary bypass grafting x3 -- left internal mammary artery to LAD, reverse saphenous vein to homa gonal, reverse saphenous vein to OM. DESCRIPTION OF HOSPITAL STAY: Mr. Chiu is a 51-year-old type 1 diabetic who was admitted with mari st and arm discomfort. He underwent cardiac catheterization at the outpatient center and this reveal ed left main stenosis with a diminutive right coronary artery. He was admitted to [facility] coronary bypass grafting on 08/07/2017. Postoperatively, he has done well. He has managed hi s own sugars while he has been here. He has had no rhythm disturbances. At the time of discharge, clement cabrera is ambulatory, tolerating a regular diet, having good bowel and bladder function. Incisions are cl janessa and dry without evidence of infection. DISCHARGE MEDICATIONS: 1. Aspirin 325 mg every day. 2. Synthroid 75 mcg daily. 3. Zestril 5 mg daily. 4. Toprol-XL 12.5 mg daily. 6. Metformin 1000 mg b.i.d. 6. Zocor 20 mg at bedtime. 7. Insulin per his home regimen. FOLLOWUP: Follow up is with me in [address] Paulino in 1 month.
[2017-08-11] MEDS: Metoprolol Tartrate 25 MG TAB PO SCH (08:26)
[2017-08-11] MEDS: Famotidine 20 MG TAB PO SCH (08:26)
[2017-08-11] MEDS: Aspirin 325 mg Enteric Coated Tablet PO SCH (08:26)
[2017-08-11] MEDS: INSULIN GLARGINE SC SCH (08:27)
[2017-08-11] MEDS: Docusate 100 MG CAP PO SCH (08:27)
[2017-08-11] MEDS ORDERED: Lisinopril 5 MG TAB PO SCH (09:00)
[2017-08-11 09:38] VITALS: TEMP 99
[2017-08-11 11:56] VITALS: BP 172/82
[2017-08-11] MEDS: HumaLOG 300 UNITS/3 ML VIAL SC PRN (12:21)
[2017-08-11] MEDS ORDERED: Atorvastatin Calcium 40 MG TAB PO SCH (21:00)
== END 2017-08-11 13:45 | disposition home or self-care (01) | DRG 236 ==
LOC: EEVIPCON 11:06 → 2NO 11:06 → CCU 08-07 06:56 → 2NO 08-09 09:08
PROVIDERS: ADMIT Internal Medicine Cardiovascular Disease; ATTEND Internal Medicine Cardiovascular Disease
PROC: 02100Z9 Bypass Coronary Artery, One Artery from Left Internal Mammary, Open Approach (ICD-10-PCS; principal; 2017-08-07)
PROC: 021109W Bypass Coronary Artery, Two Arteries from Aorta with Autologous Venous Tissue, Open Approach (ICD-10-PCS; 2017-08-07)
PROC: 06BQ4ZZ Excision of Left Saphenous Vein, Percutaneous Endoscopic Approach (ICD-10-PCS; 2017-08-07)
PROC: 03B10ZZ Excision of Left Internal Mammary Artery, Open Approach (ICD-10-PCS; 2017-08-07)
PROC: 5A1221Z Performance of Cardiac Output, Continuous (ICD-10-PCS; 2017-08-07)
PROC: B24BZZ4 Ultrasonography of Heart with Aorta, Transesophageal (ICD-10-PCS; 2017-08-07)
DX: I25.110 Atherosclerotic heart disease of native coronary artery with unstable angina pectoris (principal); E78.5 Hyperlipidemia, unspecified; I10 Essential (primary) hypertension; E10.9 Type 1 diabetes mellitus without complications; Z79.4 Long term (current) use of insulin; K59.00 Constipation, unspecified; Z79.82 Long term (current) use of aspirin; Z79.84 Long term (current) use of oral hypoglycemic drugs
CPT/HCPCS: 36415; 36416; 71045; 80048; 80053; 82805; 83735; 84100; 85025; 85610; 85730; 86850; 86900; 86901; 93005; 93010; 93798; 94002; 94640; J1642; J1644; J1815; J1885; J2001; J2250; J2370; J2440; J2704; J2720; J3010; J3370; J3475; J3480; J7050; J7620; P9045; P9047; S0017

== ENCOUNTER 2017-11-12 11:44 | Inpatient (IN) | payer OTHER ==
[2017-11-12 12:11] LABS: #Basophils 0.1 thou/uL (0.0-0.2); #Eosinphils 0.2 thou/uL (0.0-0.7); #Lymphocytes 2.4 thou/uL (1.20-3.40); #Monocytes 0.9 thou/uL (0.11-0.59); #Neutrophils 7.3 thou/uL (1.40-6.50); %Basophils 0.8 % (0.0-1.0); %Eosinophils 1.8 % (0.0-10.0); %Lymphocytes 22.2 % (21.0-51.0); %Monocytes 7.9 % (0.0-10.0); %Neutrophils 67.4 % (42.0-75.0); Hemoglobin 12.8 g/dL (14.0-18.0); Mean Corpuscular HGB CONC 32.9 g/dL (32.0-36.0); Mean Corpuscular Hemoglobin 26.7 pg (27.0-31.0); Mean Corpuscular Volume 81.2 fL (78.0-98.0); Mean Platelet Volume 8.9 fL (7.4-10.4); Platelet Count 391 thou/uL (130-400); Red Blood Cell (RBC) Count 4.78 mill/uL (4.70-6.10); White Blood Cell (WBC) Count 10.8 thou/uL (4.8-10.8)
[2017-11-12 12:31] LABS: ALT (SGPT) 31 U/L (8-55); AST (SGOT) 21 U/L (5-34); Albumin 4.3 g/dL (3.5-5.0); Alkaline Phosphatase 87 U/L (40-150); Anion Gap 16 mmol/L (10-20); BUN (Urea Nitrogen) 14 mg/dL (8.4-25.7); Bilirubin, Total 0.9 mg/dL (0.2-1.2); Calc. Creatinine Clearance 0 mL/min (70-130); Calcium 10.1 mg/dL (7.8-10.44); Carbon Dioxide 24 mmol/L (22-29); Chloride 101 mmol/L (98-107); Estimated GFR-MDRD 61; Globulin 4.1 g/dL (2.4-3.5); Glucose 231 mg/dL (70-105); Potassium 4.5 mmol/L (3.5-5.1); Protein, Total 8.4 g/dL (6.0-8.3); Sodium 136 mmol/L (136-145)
[2017-11-12 12:33] LABS: CKMB 2.9 ng/mL (0-6.6)
[2017-11-12 12:38] LABS: Troponin I 0.783 ng/mL (< 0.028)
[2017-11-12] MEDS ORDERED: Nitroglycerin 0.4 MG TAB (25 Tab Bottle) ONE (12:59)
[2017-11-12] MEDS ORDERED: Enoxaparin Sodium 100 MG/ML SYRINGE ONE (13:18)
[2017-11-12] MEDS ORDERED: Enoxaparin Sodium 80 MG/0.8 ML SYRINGE ONE (13:24)
[2017-11-12 13:48] LABS: Critical Call Chem Troponin I RESULT DECREASING; Troponin I 0.685 ng/mL (< 0.028)
--- NOTE | 2017-11-12 14:04 | RAD ---
PORTABLE CHEST: HISTORY: Chest pain. COMPARISON: 08/09/17. FINDINGS: Lungs are clear. Vascular markings normal. Heart size within normal range with postop sternotomy ch anges again noted. Rib deformities on the right again noted from old fractures. IMPRESSION: Unremarkable portable chest. POS: [facility]
[2017-11-12] MEDS ORDERED: ISOVUE-370 76%-LOCM 1 ML ONE (15:05)
[2017-11-12 15:19] VITALS: BMI 28.0
[2017-11-12 16:55] LABS: Troponin I 0.958 ng/mL (< 0.028)
--- NOTE | 2017-11-12 18:00 | CON ---
DATE OF CONSULTATION: 11/12/2017 REASON FOR CONSULTATION: Chest pain, elevated troponins. HISTORY OF PRESENT ILLNESS: Mr. Figueroa is a pleasant 61-year-old white gentleman, very well known to myself who comes to the hospital for chest burning. He had bypass surgery just 3 months ago. He had a CURTIS to the LAD and a vein graft to a diagonal and jump to an OM. He was in [place] about a week ago for a school and he started having chest burning and went to the ER in [place] and was found to have elevated troponins, so he was taken to the [facility] where he had a very complex intervention of his left circumflex. He had a laser atherectomy as well as rotational atherectomy to the artery and had successful placement of a 2.5 mm stent. He did well after that. No more chest pain, tightness or pressure, came to my office . He had an episode of shortness of breath with exertion, but has not had anymore chest burning. Today , he started having chest burning again, so decided to come in for evaluation. Currently symptom free. PAST MEDICAL HISTORY: 1. Hypertension. 2. Hypothyroidism. 3. Hyperlipidemia. 4. Type 1 diabetes since he was 13 years old. OUTPATIENT MEDICATIONS: 1. Simvastatin 40 mg at bedtime. 2. NovoLog. 3. Aspirin 81 a day. 4. Lisinopril 20 mg b.i.d. 5. Insulin Levemir 6 units b.i.d. 6. Zyrtec 10 mg a day. 7. Brilinta 90 mg b.i.d. 8. Metoprolol 50 mg a day. 9. Synthroid 75 mcg a day. ALLERGIES: No known drug allergies. SOCIAL HISTORY: No alcohol, tobacco or drugs. PAST SURGICAL HISTORY: CABG x2 as above. FAMILY HISTORY: Noncontributory. REVIEW OF SYSTEMS: A 12-point review of systems was done and is all negative unless stated in the history of present illness. PHYSICAL EXAMINATION: VITAL SIGNS: Temperature 98.3, pulse 82, respiration rate 18, satting 98% on room air, blood pressure 153/70. GENERAL: Awake, alert, oriented x3, in no distress. HEENT: Normocephalic, atraumatic. NECK: Supple. LUNGS: Clear. CARDIOVASCULAR: S1, S2, no S3, S4, no murmurs. ABDOMEN: Soft, otherwise. EXTREMITIES: No edema. SKIN: Warm and dry. LABORATORY WORK: Reviewed. CBC: Hemoglobin of 12.8, hematocrit 38, white count of 10 and platelet count of 391. Chemistry is unremarkable except for glucose of 231. Albumin of 4.3. His troponin I's 0.78 and 0.68, but a normal CK-MB. EKG was reviewed. Chest x-ray was reviewed which is unremarkable. There is a rib deformity in the right from old fractures and sternotomy. ASSESSMENT AND PLAN: 1. Non-ST elevation myocardial infarction. This troponin elevation may be related to some other cause. We will rule out PE with a CT per PE protocol. We will get a repeat echocardiogram to evaluate her left ventricular function and valvular structures. He had a normal ejection fraction back in July of this year before his bypass. 2. Coronary artery disease status post left internal mammary artery to the left anterior descending and vein graft to the diagonal with jump to an obtuse marginal. More recently status post stent to his left circumflex very, very complex procedure about a week ago. 3. Type 1 diabetes. Thank you for this particular patient. We will follow. DISPOSITION: 1. We will continue to trend troponins. If troponins remain at just low, but positive level this is more likely a troponin leak. If it continues to trend down, he could also just be his troponin coming down from the recent procedure that he had which was extremely complex. Concern for occlusio nof the jump graft to the OM given better flow from the LCx intervention. 2. Echocardiogram. We will let us know if there has been any heart damage that has been reduced in the LV function. We will plan on doing a heart catheterization tomorrow. 3. We will follow. [facility]
--- NOTE | 2017-11-12 18:38 | CT ---
CT ANGIOGRAM OF THE CHEST: Date: 11-12-17 History: Chest pain, history of CABG and cardiac stents, shortness of breath, assess for pulmonary em bolism. Technique: Serial axial CT imaging obtained at 2.5 mm intervals from the thoracic inlet through the u pper abdomen with IV contrast using a CT angiogram protocol. Coronal and oblique sagittal 3D reformat ita imaging obtained. FINDINGS: There is no axillary, mediastinal, or hilar lymphadenopathy. The imaged upper abdomen demonstrates no acute findings. There is subtle irregularity involving the p eripheral margin of the liver with subtle varices in the right upper quadrant which could signify seq uellae of hepatocellular disease. Clinical correlation is essential. There is nonspecific mild distal esophageal thickening. Midline sternotomy wires and mediastinal clip s are present. There is adequate opacification of the pulmonary arterial vasculature. No discrete filling defect is seen within the pulmonary arterial vasculature to suggest the presence of acute pulmonary embolus. No pneumothorax is seen on either side. The lung parenchymal demonstrates no cute findings. No acute osseous abnormality. IMPRESSION: 1. No evidence for pulmonary embolism. Incidental findings as detailed above. POS: [facility]
[2017-11-12] MEDS ORDERED: Dextrose 50% Abboject 50 ML SYRINGE IVP PRN (19:23)
[2017-11-12] MEDS ORDERED: HumaLOG 300 UNITS/3 ML VIAL SC PRN (19:23)
[2017-11-12] MEDS ORDERED: Dextrose 5% in Water 1,000 ML IV PRN (19:23)
[2017-11-12] MEDS ORDERED: Loratadine 10 MG TAB PO PRN (19:28)
[2017-11-12] MEDS: Insulin Glargine 60 UNITS in Pre-Filled Syringe 1 EACH SC SCH (20:15)
[2017-11-12] MEDS: TICAGRELOR 90 MG TABLET PO SCH (20:16)
[2017-11-12] MEDS ORDERED: Simvastatin 40 MG TAB PO SCH (21:00)
--- NOTE | 2017-11-12 23:35 | HP ---
DATE OF ADMISSION: 11/12/2017 CHIEF COMPLAINT: Chest pain. HISTORY OF PRESENT ILLNESS: This is a 51-year-old male patient of Dr. Tuan Leger who ca me to the emergency room today after experiencing an acute onset of discomfort in his left upper ches t that then progressed to a burning sensation across his whole chest. He had just had [address] within the last 2 weeks while he was in [place] on a trip. Prior to that, he had had a 2-vessel CA BG in August done here by Dr. Niranjan Leger and he had been told that a burning sensation in his chest w as his sign of cardiac injury, so he came to the emergency room. He did say he was feeling clammy. He denied any shortness of breath. This all happened at rest. He denies any nausea or any discomfor t up to the jaw or any radiation of this pain other than across his chest. The other thing he noted was that his blood pressure initially this morning was in the low 100s, 110 and 111 and it progressed over the next hour or two up into the 150s/110s. He is not typically taking his nitroglycerin, but he did at that point. The pain lasted for at least an hour and a half while he decided to come into the emergency room. Upon arrival in the emergency room, EKG was minimally abnormal with no true evid ence of ST-T wave elevation or depression, but his troponins were definitely off. The patient states that his troponin when he was in [place] prior to getting his stents was well over 100, at one point over 500. So his troponins here were barely positive relatively speaking. Currently in the room he is not having any complaints of pain. PAST MEDICAL HISTORY: Positive for type 1 diabetes, hypothyroidism, known atherosclerotic coronary v ascular disease with hypertension and hyperlipidemia. PAST SURGICAL HISTORY: Positive for CABG x2 in [place] by Dr. Leger, one being in vein and other being L CIERRA. He had stents placed in 3 vessels in [place] this month. I do not believe he has had any other surgeries. ALLERGIES: He has no known drug allergies. CURRENT MEDICATIONS: He has been placed on Brilinta 90 mg twice a day, aspirin 81 mg daily, Zocor 40 mg daily, metoprolol 50 mg daily, lisinopril 20 mg twice a day. He is on Synthroid 75 mcg daily, Le vemir 6 units twice a day, NovoLog 34 units 3 times a day and he also takes Zyrtec almost every day o f 10 mg. SOCIAL HISTORY: He is a clerical dentist assistant. No toxic habits. FAMILY HISTORY: His father of some unknown malignancy. His mother had diabetes. Maternal shailesh quionnez of an ID at a very young age. Maternal grandmother had a CVA. Paternal grandfather als o of an ID, but more elderly age. REVIEW OF SYSTEMS: Patient denies any headache, no fever or chills. No troubles with vision changes , no troubles with chewing or swallowing. Denies any shortness of breath. No chest heaviness. Did have the chest burning as described above. Denies any nausea or vomiting. No abdominal pain, no homa rrhea or constipation. Denies any hematochezia, changes in his bowels, no diarrhea, bright red blood per rectum. Denies any dysuria or hematuria. Denies any paresis or paresthesias. Denies any psych iatric symptoms. No homicidal or suicidal ideations. No auditory or visual hallucinations. PHYSICAL EXAMINATION: GENERAL: On examination, patient is resting in bed comfortably, very pleasant. VITAL SIGNS: Temperature 98.3, pulse 82, respiration is 18, satting 98% on room air, BP is 150s/70s. HEENT: Normocephalic and atraumatic cranium. He does wear glasses. His pupils are equal, round, an d reactive to light and accommodations. Extraocular movements are intact. His sclera is anicteric. NECK: Supple, no JVD, no bruits, no thyromegaly, no lymphadenopathy. HEART: S1, S2, with no rubs, murmurs, or gallops. Has a very well healed median sternotomy scar. LUNGS: Clear to auscultation bilaterally with no rales, rhonchi or wheezes. ABDOMEN: Soft, nontender, nondistended, slightly obese. No hepatosplenomegaly palpated. Bowel soun ds throughout. GENITOURINARY: Exam is deferred. EXTREMITIES: He has palpable pulses x4. No cyanosis, clubbing or edema. He does have noted vitilig o above the head and neck area. NEUROLOGIC: Cranial nerves II-XII are equal and symmetrical, grossly intact bilaterally. No motor o r sensory deficits appreciated. LABORATORY DATA AND IMAGING DATA: White count is 10.8, hemoglobin and hematocrit is 12.8 and 38.8 re spectively with 391,000 platelets, no left shift. His sodium is 136, potassium 4.5, chloride 101, bi carb 24, BUN is 14, creatinine is 1.24, glucose of 231, ALT is 31, and AST is 21. CK-MB is 2.9. Tro ponin 1 was 0.78. Troponin 2 was 0.68. Troponin [address] angio was done and was negative for PE. Chest x-ray was essentially negative other than remote rib injury. ASSESSMENT AND PLAN: Chest pain with known atherosclerotic coronary vascular disease with elevated t roponin. Right now has been called non-STEMI. He is status post stents recently and 2-vessel CABG o nly 3 months ago. He also has type 1 diabetes and hypothyroidism. We will continue his routine meds . He has been on for his diabetes and hypothyroidism. We will check a TSH while he is here. We elder l continue to do more monitoring of his troponin and will add a myoglobin to that. Dr. Paulino has al ready seen him and will plan on doing an echo tomorrow. Dr. Leger will assume care of him in the [facility].
[2017-11-12 23:49] LABS: Troponin I 2.416 ng/mL (< 0.028)
[2017-11-13] MEDS ORDERED: Nitroglycerin 2% Ointment 1 INCH/1 GM Packet TOP PRN (01:25)
[2017-11-13] MEDS ORDERED: Calcium Carbonate 500 MG ChewTAB PO PRN (01:25)
[2017-11-13] MEDS ORDERED: Famotidine 20 MG TAB PO SCH (01:30)
[2017-11-13 04:33] LABS: Troponin I 4.617 ng/mL (< 0.028)
[2017-11-13] MEDS: Levothyroxine Sodium 75 MCG TAB PO SCH (05:01)
[2017-11-13 07:14] LABS: Troponin I 6.232 ng/mL (< 0.028)
[2017-11-13] MEDS: Sodium Chloride 0.9% 1,000 ML IV SCH ×2 (08:07→20:20)
[2017-11-13] MEDS: Aspirin 81 mg Enteric Coated Tablet PO SCH (08:11)
[2017-11-13] MEDS ORDERED: Loratadine 10 MG TAB PO SCH (09:00)
[2017-11-13] MEDS ORDERED: Iopamidol 370 76% 50 ML VIAL FS ONE (10:03)
[2017-11-13] MEDS ORDERED: Iopamidol 370 76% 100 ML VIAL ONE (10:03)
[2017-11-13] MEDS: TICAGRELOR 90 MG TABLET PO SCH (10:21)
[2017-11-13] MEDS: Simvastatin 40 MG TAB PO SCH (10:23)
[2017-11-13] MEDS: Insulin Glargine 60 UNITS in Pre-Filled Syringe 1 EACH SC SCH ×2 (10:23→20:52)
[2017-11-13] MEDS: Lisinopril 20 MG TAB PO SCH (10:23)
[2017-11-13] MEDS: HumaLOG 300 UNITS/3 ML VIAL SC SCH ×3 (10:25→17:06)
[2017-11-13] MEDS ORDERED: Fentanyl 100 MCG/2 ML VIAL ONE (12:46)
[2017-11-13] MEDS ORDERED: Midazolam HCl 2 mg/2 ml Vial ONE (12:46)
[2017-11-13] MEDS ORDERED: Heparin 10,000 UNITS/1 ML VIAL ONE (13:55)
[2017-11-13] MEDS ORDERED: Aggrastat 12.5 MG/250 ML 250 ML ONE (13:56)
[2017-11-13] MEDS ORDERED: Nitroglycerin 0.4 MG TAB (25 Tab Bottle) SL PRN (14:15)
[2017-11-13] MEDS ORDERED: Aggrastat 12.5 MG/250 ML 250 ML IVPB SCH (14:15)
[2017-11-13] MEDS ORDERED: Sodium Chloride 0.9% 1,000 ML IV SCH (14:30)
[2017-11-13 14:57] LABS: #Lymphocytes 2.9 thou/uL (1.20-3.40); #Neutrophils 7.2 thou/uL (1.40-6.50); %Basophils 0.2 % (0.0-1.0); %Eosinophils 0.4 % (0.0-10.0); %Lymphocytes 26.4 % (21.0-51.0); %Monocytes 8.7 % (0.0-10.0); %Neutrophils 64.3 % (42.0-75.0); Hemoglobin 11.4 g/dL (14.0-18.0); Mean Corpuscular HGB CONC 33.1 g/dL (32.0-36.0); Mean Corpuscular Hemoglobin 26.3 pg (27.0-31.0); Mean Corpuscular Volume 79.4 fL (78.0-98.0); Mean Platelet Volume 8.5 fL (7.4-10.4); Platelet Count 380 thou/uL (130-400); Red Blood Cell (RBC) Count 4.34 mill/uL (4.70-6.10); White Blood Cell (WBC) Count 11.1 thou/uL (4.8-10.8)
[2017-11-13 15:54] LABS: Troponin I 6.714 ng/mL (< 0.028)
[2017-11-13 15:55] LABS: CKMB 31.8 ng/mL (0-6.6)
--- NOTE | 2017-11-13 18:42 | PRG ---
DATE OF SERVICE: 11/13/2017 SUBJECTIVE: Mr. Figueroa in the hospital days having no further chest pain. It is noted his troponi ns have been serially elevated now above 6. PHYSICAL EXAMINATION: VITAL SIGNS: Blood pressure is 116/56, heart rate 77, O2 sat 100%. GENERAL: He is uncomfortable and alert. LUNGS: Clear. HEART: Reveals no murmur. LABORATORY DATA: Troponin is 6.74. IMPRESSION: 1. Coronary artery disease. 2. Elevated troponins. PLAN: I have notified Dr. Paulino. He was taken to the labeling specialist for further treatment and evaluation . I have notified the patient of the need for this. He is in agreement. We will proceed.
[2017-11-13 20:40] LABS: #Basophils 0.1 thou/uL (0.0-0.2); #Eosinphils 0.1 thou/uL (0.0-0.7); #Neutrophils 5.9 thou/uL (1.40-6.50); %Basophils 0.7 % (0.0-1.0); %Eosinophils 0.6 % (0.0-10.0); %Lymphocytes 29.8 % (21.0-51.0); %Monocytes 10.3 % (0.0-10.0); %Neutrophils 58.6 % (42.0-75.0); Hemoglobin 11.1 g/dL (14.0-18.0); Mean Corpuscular HGB CONC 32.3 g/dL (32.0-36.0); Mean Corpuscular Hemoglobin 25.8 pg (27.0-31.0); Mean Corpuscular Volume 79.8 fL (78.0-98.0); Mean Platelet Volume 8.5 fL (7.4-10.4); Platelet Count 381 thou/uL (130-400); RBC Distribution Width 15.2 % (11.5-14.5); Red Blood Cell (RBC) Count 4.31 mill/uL (4.70-6.10)
[2017-11-13] MEDS: Famotidine 20 MG TAB PO SCH (20:52)
[2017-11-13 21:41] LABS: CKMB 29.2 ng/mL (0-6.6); Critical Call CKMBM RESULT DECREASING
[2017-11-13 21:43] LABS: Troponin I 9.807 ng/mL (< 0.028)
[2017-11-14] MEDS ORDERED: Propofol 1,000 MG/100 ML VIAL IV ONE (01:39)
[2017-11-14 02:22] LABS: #Basophils 0.1 thou/uL (0.0-0.2); #Eosinphils 0.1 thou/uL (0.0-0.7); #Lymphocytes 2.9 thou/uL (1.20-3.40); #Monocytes 0.9 thou/uL (0.11-0.59); #Neutrophils 4.3 thou/uL (1.40-6.50); %Eosinophils 1.2 % (0.0-10.0); %Lymphocytes 35.3 % (21.0-51.0); %Monocytes 10.4 % (0.0-10.0); %Neutrophils 52.2 % (42.0-75.0); Hemoglobin 10.8 g/dL (14.0-18.0); Mean Corpuscular HGB CONC 33.4 g/dL (32.0-36.0); Mean Corpuscular Hemoglobin 26.8 pg (27.0-31.0); Mean Platelet Volume 8.5 fL (7.4-10.4); Platelet Count 353 thou/uL (130-400); RBC Distribution Width 15.2 % (11.5-14.5); Red Blood Cell (RBC) Count 4.04 mill/uL (4.70-6.10); White Blood Cell (WBC) Count 8.2 thou/uL (4.8-10.8)
[2017-11-14 02:51] LABS: CKMB 21.6 ng/mL (0-6.6); Critical Call CKMBM RESULT DECREASING
[2017-11-14 02:52] LABS: ALT (SGPT) 25 U/L (8-55); AST (SGOT) 46 U/L (5-34); Albumin 3.5 g/dL (3.5-5.0); Alkaline Phosphatase 69 U/L (40-150); Anion Gap 13 mmol/L (10-20); BUN (Urea Nitrogen) 12 mg/dL (8.4-25.7); Bilirubin, Total 0.8 mg/dL (0.2-1.2); Calc. Creatinine Clearance 112 mL/min (70-130); Calcium 8.9 mg/dL (7.8-10.44); Carbon Dioxide 20 mmol/L (22-29); Chloride 107 mmol/L (98-107); Estimated GFR-MDRD 88; Globulin 3.2 g/dL (2.4-3.5); Glucose 107 mg/dL (70-105); Protein, Total 6.7 g/dL (6.0-8.3); Sodium 136 mmol/L (136-145)
[2017-11-14 02:53] LABS: Critical Call Chem Troponin I RESULT DECREASING; Troponin I 8.565 ng/mL (< 0.028)
[2017-11-14] MEDS: Levothyroxine Sodium 75 MCG TAB PO SCH (05:47)
[2017-11-14] MEDS: Sodium Chloride 0.9% 1,000 ML IV SCH ×2 (05:58→12:07)
--- NOTE | 2017-11-14 07:08 | EKG ---
Test Reason : Blood Pressure : / mmHG Vent. Rate : 081 BPM Atrial Rate : 081 BPM P-R Int : 138 ms QRS Dur : 082 ms QT Int : 372 ms P-R-T Axes : 064 032 139 degrees QTc Int : 432 ms Normal sinus rhythm Abnormal ECG When compared with ECG of 12-NOV-2017 12:59, (Unconfirmed) T wave inversion no longer evident in Inferior leads T wave inversion now evident in Anterior leads Confirmed by MICHELA WARREN ([id number]) on 11/14/2017 7:08:12 AM Referred By: PADDY Confirmed By:MICHELA WARREN
[2017-11-14 08:31] LABS: #Basophils 0.1 thou/uL (0.0-0.2); #Eosinphils 0.1 thou/uL (0.0-0.7); #Lymphocytes 2.3 thou/uL (1.20-3.40); #Monocytes 0.9 thou/uL (0.11-0.59); #Neutrophils 4.4 thou/uL (1.40-6.50); %Basophils 0.8 % (0.0-1.0); %Eosinophils 1.2 % (0.0-10.0); %Lymphocytes 29.3 % (21.0-51.0); %Neutrophils 56.7 % (42.0-75.0); Hemoglobin 10.7 g/dL (14.0-18.0); Mean Corpuscular HGB CONC 32.8 g/dL (32.0-36.0); Mean Corpuscular Hemoglobin 26.5 pg (27.0-31.0); Mean Corpuscular Volume 80.7 fL (78.0-98.0); Mean Platelet Volume 8.5 fL (7.4-10.4); Platelet Count 341 thou/uL (130-400); Red Blood Cell (RBC) Count 4.04 mill/uL (4.70-6.10); White Blood Cell (WBC) Count 7.8 thou/uL (4.8-10.8)
--- NOTE | 2017-11-14 08:33 | PRG ---
DATE OF SERVICE: 11/14/2017 SUBJECTIVE: Mr. Chiu is status post cardiac cath. He is doing well at this time. No complaints noted. He states he is feeling somewhat better at this time. PHYSICAL EXAMINATION: VITAL SIGNS: BP 120/62, temperature 98.3, O2 sats 100%. LUNGS: Clear. HEART: Reveals no murmur. LABORATORY: Hemoglobin 10.8, hematocrit 32.3. Chemistry is normal. Troponin is 8.565. CK-MB 21.6. IMPRESSION: 1. Non-ST segment elevated myocardial infarction. 2. History of atherosclerotic coronary artery disease. 3. Type 1 diabetes mellitus. PLAN: 1. Continue current care. 2. Further treatment and recommendations will be made by Cardiology.
[2017-11-14] MEDS: HumaLOG 300 UNITS/3 ML VIAL SC SCH ×3 (09:25→17:24)
[2017-11-14] MEDS: Insulin Glargine 60 UNITS in Pre-Filled Syringe 1 EACH SC SCH ×2 (09:26→21:20)
[2017-11-14] MEDS: Simvastatin 40 MG TAB PO SCH (09:28)
[2017-11-14] MEDS: Lisinopril 20 MG TAB PO SCH (09:28)
[2017-11-14] MEDS: Prasugrel 10 MG TAB PO SCH (09:28)
[2017-11-14] MEDS: Aspirin 81 mg Enteric Coated Tablet PO SCH (09:29)
--- NOTE | 2017-11-14 17:44 | PDOC.CTH ---
Cardiology Progress Note - Subjective He is doing well. Left groin a little tender but no bruising or hematoma. No bruit. - Objective Vital Signs Temp Pulse Pulse Pulse Resp BP BP 11/14/17 16:54 97.3 F L 82 14 11/14/17 16:00 98.1 F 11/14/17 12:00 98.5 F 11/14/17 09:28 103/62 11/14/17 09:25 79 90 114/66 11/14/17 07:44 98.3 F 72 18 11/14/17 07:00 98.3 F BP BP Pulse Ox Pulse Ox Pulse Ox 11/14/17 16:54 108/68 98 11/14/17 16:00 11/14/17 12:00 11/14/17 09:28 11/14/17 09:25 132/81 99 100 11/14/17 07:44 100 11/14/17 07:00 Weight 184 lb 4.8 oz 11/13/17 11/14/17 11/15/17 06:59 06:59 06:59 Intake Total 1582 1745 Output Total 1200 550 Balance 382 1195 - Physical Examination General/Neuro: alert & oriented x3, NAD Neck: no JVD present Lungs: CTA, unlabored respirations Heart: RRR Abdomen: NT/ND Extremities: other: (no edema.) - Telemetry Telemetry Rhythm: NSR - Labs Result Diagrams: 11/14/17 08:10 11/14/17 02:14 Troponin/CKMB CK-MB (CK-2) 21.6 ng/mL (0-6.6) H* 11/14/17 02:14 Troponin I 8.565 ng/mL (< 0.028) H* 11/14/17 02:14 - Assessment/Plan 1. Acute AK 2. Occluded LCx stent 3. S/P Balloon angioplasty of LCx stent. 4. Degenerated Graft to Diagonal and OM but patent CURTIS to LAD. 5. Type 1 diabetes. PLAN - Continue Effient and full dose aspirin. - Transfer to floor. - Continue other meds.
[2017-11-14] MEDS: Famotidine 20 MG TAB PO SCH (20:33)
[2017-11-14 20:44] LABS: #Basophils 0.1 thou/uL (0.0-0.2); #Eosinphils 0.1 thou/uL (0.0-0.7); #Lymphocytes 2.8 thou/uL (1.20-3.40); #Neutrophils 4.2 thou/uL (1.40-6.50); %Basophils 0.9 % (0.0-1.0); %Eosinophils 1.6 % (0.0-10.0); %Monocytes 12.2 % (0.0-10.0); %Neutrophils 51.2 % (42.0-75.0); Hemoglobin 11.2 g/dL (14.0-18.0); Mean Corpuscular HGB CONC 32.6 g/dL (32.0-36.0); Mean Corpuscular Hemoglobin 26.4 pg (27.0-31.0); Mean Corpuscular Volume 81.1 fL (78.0-98.0); Mean Platelet Volume 8.5 fL (7.4-10.4); Platelet Count 346 thou/uL (130-400); RBC Distribution Width 15.1 % (11.5-14.5); Red Blood Cell (RBC) Count 4.22 mill/uL (4.70-6.10); White Blood Cell (WBC) Count 8.2 thou/uL (4.8-10.8)
[2017-11-15 02:17] LABS: #Basophils 0.1 thou/uL (0.0-0.2); #Eosinphils 0.1 thou/uL (0.0-0.7); #Lymphocytes 2.7 thou/uL (1.20-3.40); #Monocytes 0.8 thou/uL (0.11-0.59); #Neutrophils 4.2 thou/uL (1.40-6.50); %Basophils 0.7 % (0.0-1.0); %Eosinophils 1.8 % (0.0-10.0); %Lymphocytes 34.5 % (21.0-51.0); %Monocytes 9.7 % (0.0-10.0); %Neutrophils 53.3 % (42.0-75.0); Hemoglobin 10.5 g/dL (14.0-18.0); Mean Corpuscular HGB CONC 32.7 g/dL (32.0-36.0); Mean Corpuscular Hemoglobin 26.5 pg (27.0-31.0); Mean Corpuscular Volume 80.9 fL (78.0-98.0); Mean Platelet Volume 8.5 fL (7.4-10.4); Platelet Count 319 thou/uL (130-400); RBC Distribution Width 14.8 % (11.5-14.5); Red Blood Cell (RBC) Count 3.97 mill/uL (4.70-6.10); White Blood Cell (WBC) Count 7.9 thou/uL (4.8-10.8)
[2017-11-15] MEDS: Levothyroxine Sodium 75 MCG TAB PO SCH (05:54)
[2017-11-15] MEDS: Sodium Chloride 0.9% 1,000 ML IV SCH (05:54)
[2017-11-15] MEDS: Lisinopril 20 MG TAB PO SCH (07:56)
[2017-11-15] MEDS: Simvastatin 40 MG TAB PO SCH (07:57)
[2017-11-15] MEDS: Aspirin 81 mg Enteric Coated Tablet PO SCH (07:58)
[2017-11-15] MEDS: Prasugrel 10 MG TAB PO SCH (07:58)
[2017-11-15] MEDS: HumaLOG 300 UNITS/3 ML VIAL SC SCH ×2 (08:05→11:24)
--- NOTE | 2017-11-15 08:05 | PRG ---
DATE OF SERVICE: 11/15/2017 Mr. Chiu is doing well. He is feeling much better. He has no chest pain. OBJECTIVE: VITAL SIGNS: BP 110/68. LUNGS: Clear. HEART: Reveals no murmur. LABORATORY: Hemoglobin 10.5, hematocrit 32.1. IMPRESSION: 1. Atherosclerotic coronary disease, status post angioplasty. 2. Occluded stent. 3. Type 1 diabetes mellitus. PLAN: 1. The patient is stable, it my feeling he can probably be discharged today, this will be determined by Cardiology. 2. If he is discharged he is to maintain his current diabetic therapy. 3. He will follow up with me on a p.r.n. basis.
[2017-11-15 08:53] LABS: #Basophils 0.1 thou/uL (0.0-0.2); #Eosinphils 0.1 thou/uL (0.0-0.7); #Lymphocytes 2.2 thou/uL (1.20-3.40); #Monocytes 0.7 thou/uL (0.11-0.59); #Neutrophils 3.8 thou/uL (1.40-6.50); %Basophils 0.7 % (0.0-1.0); %Eosinophils 1.8 % (0.0-10.0); %Lymphocytes 31.7 % (21.0-51.0); %Monocytes 10.4 % (0.0-10.0); %Neutrophils 55.4 % (42.0-75.0); Hemoglobin 10.5 g/dL (14.0-18.0); Mean Corpuscular HGB CONC 32.1 g/dL (32.0-36.0); Mean Corpuscular Hemoglobin 26.1 pg (27.0-31.0); Mean Corpuscular Volume 81.5 fL (78.0-98.0); Mean Platelet Volume 8.9 fL (7.4-10.4); Platelet Count 304 thou/uL (130-400); RBC Distribution Width 14.9 % (11.5-14.5); Red Blood Cell (RBC) Count 4.03 mill/uL (4.70-6.10); White Blood Cell (WBC) Count 6.9 thou/uL (4.8-10.8)
[2017-11-15] MEDS: Insulin Glargine 60 UNITS in Pre-Filled Syringe 1 EACH SC SCH (09:15)
--- NOTE | 2017-11-15 12:02 | EKG ---
Test Reason : Blood Pressure : / mmHG Vent. Rate : 079 BPM Atrial Rate : 079 BPM P-R Int : 138 ms QRS Dur : 084 ms QT Int : 394 ms P-R-T Axes : 066 035 133 degrees QTc Int : 451 ms Normal sinus rhythm Abnormal ECG When compared with ECG of 13-NOV-2017 15:06, No significant change was found Confirmed by MICHELA WARREN ([id number]) on 11/15/2017 12:02:14 PM Referred By: PADDY Confirmed By:MICHELA WARREN
[2017-11-15 12:32] VITALS: TEMP 98.3
[2017-11-15 14:10] VITALS: BP 112/57
--- NOTE | 2017-11-15 18:00 | PDOC.CTH ---
Cardiology Progress Note - Subjective He is doing well. No more chest burning. still has chest pain with coughing from his CABG. - Objective Vital Signs Temp Pulse Pulse Pulse Resp BP BP 11/15/17 11:35 98.3 F 76 18 11/15/17 09:48 87 71 112/57 L 11/15/17 08:00 98.1 F 84 16 11/15/17 07:56 103/62 11/15/17 07:35 98.1 F 84 16 BP BP Pulse Ox Pulse Ox Pulse Ox 11/15/17 11:35 95/53 L 100 11/15/17 09:48 107/57 L 100 98 11/15/17 08:00 11/15/17 07:56 11/15/17 07:35 110/68 97 Weight 181 lb 11/14/17 11/15/17 11/16/17 06:59 06:59 06:59 Intake Total 1582 2345 120 Output Total 1200 550 Balance 382 1795 120 - Physical Examination General/Neuro: alert & oriented x3, NAD Neck: no JVD present Lungs: CTA, unlabored respirations Heart: RRR Abdomen: NT/ND Extremities: other: (no edema) - Telemetry Telemetry Rhythm: NSR - Labs Result Diagrams: 11/15/17 08:32 11/14/17 02:14 Troponin/CKMB CK-MB (CK-2) 21.6 ng/mL (0-6.6) H* 11/14/17 02:14 Troponin I 8.565 ng/mL (< 0.028) H* 11/14/17 02:14 - Assessment/Plan 1. Acute PA 2. Occluded LCx stent 3. S/P Balloon angioplasty of LCx stent. 4. Degenerated Graft to Diagonal and OM but patent CURTIS to LAD. 5. Type 1 diabetes. PLAN - Continue Effient and full dose aspirin. - Continue other meds. - May discharge home today. - Follow up in 1 month.
--- NOTE | 2017-11-18 11:37 | EKG ---
Test Reason : Blood Pressure : / mmHG Vent. Rate : 081 BPM Atrial Rate : 081 BPM P-R Int : 138 ms QRS Dur : 094 ms QT Int : 380 ms P-R-T Axes : 059 037 157 degrees QTc Int : 441 ms Normal sinus rhythm Abnormal ECG Confirmed by LUZ KC DO ([id number]), film editor JULIANNE BEGUM ([id number]) on 11/18/2017 11:37:12 AM Referred By: Confirmed By:LUZ KC DO
--- NOTE | 2017-11-18 11:38 | EKG ---
Test Reason : Blood Pressure : / mmHG Vent. Rate : 078 BPM Atrial Rate : 078 BPM P-R Int : 140 ms QRS Dur : 092 ms QT Int : 368 ms P-R-T Axes : 063 040 248 degrees QTc Int : 419 ms Normal sinus rhythm Abnormal ECG No ST elevation/NV Confirmed by LUZ KC DO ([id number]), film editor supervisor JULIANNE BEGUM ([id number]) on 11/18/2017 11:38:35 AM Referred By: Confirmed By:LUZ KC DO
== END 2017-11-15 13:45 | disposition home or self-care (01) | DRG 251 ==
LOC: ERS 11:44 → 2NO 13:00 → CCU 11-13 14:24 → 2NO 11-14 16:45
PROVIDERS: ADMIT Family Medicine; ATTEND Family Medicine
PROC: 02703ZZ Dilation of Coronary Artery, One Artery, Percutaneous Approach (ICD-10-PCS; principal; 2017-11-13)
PROC: 4A023N7 Measurement of Cardiac Sampling and Pressure, Left Heart, Percutaneous Approach (ICD-10-PCS; 2017-11-13)
PROC: B2111ZZ Fluoroscopy of Multiple Coronary Arteries using Low Osmolar Contrast (ICD-10-PCS; 2017-11-13)
DX: I21.4 Non-ST elevation (NSTEMI) myocardial infarction (principal); I25.10 Atherosclerotic heart disease of native coronary artery without angina pectoris; E10.9 Type 1 diabetes mellitus without complications; E03.9 Hypothyroidism, unspecified; Z95.5 Presence of coronary angioplasty implant and graft; Z79.82 Long term (current) use of aspirin; Z79.4 Long term (current) use of insulin; Z79.899 Other long term (current) drug therapy; Z95.1 Presence of aortocoronary bypass graft; Z09 Encounter for follow-up examination after completed treatment for conditions other than malignant neoplasm
CPT/HCPCS: 36415; 36416; 71045; 71275; 80053; 82553; 83874; 84443; 84484; 85025; 85347; 90471; 90732; 92920; 92977; 92978; 93005; 93010; 93306; 93459; 93567; 93798; 96372; 99152; 99153; A4216; C1725; C1757; C1769; G0009; J1644; J1650; J2250; J2704; J3010; J3246

== ENCOUNTER 2018-03-20 16:57 | Outpatient (CLI) | payer OTHER ==
[2018-03-20 17:27] LABS: PTT 27.2 SEC (22.9-36.1); Prothrombin Time 13.3 SEC (12.0-14.7)
[2018-03-20 17:28] LABS: #Basophils 0.1 thou/uL (0.0-0.2); #Eosinphils 0.1 thou/uL (0.0-0.7); #Lymphocytes 3.3 thou/uL (1.20-3.40); #Monocytes 0.9 thou/uL (0.11-0.59); #Neutrophils 4.7 thou/uL (1.40-6.50); %Basophils 0.9 % (0.0-1.0); %Eosinophils 1.6 % (0.0-10.0); %Lymphocytes 36.2 % (21.0-51.0); %Monocytes 9.8 % (0.0-10.0); %Neutrophils 51.6 % (42.0-75.0); Hemoglobin 12.3 g/dL (14.0-18.0); Mean Corpuscular HGB CONC 31.2 g/dL (32.0-36.0); Mean Corpuscular Hemoglobin 23.5 pg (27.0-31.0); Mean Corpuscular Volume 75.2 fL (78.0-98.0); Mean Platelet Volume 9.5 fL (7.4-10.4); Platelet Count 323 thou/uL (130-400); RBC Distribution Width 15.5 % (11.5-14.5); Red Blood Cell (RBC) Count 5.23 mill/uL (4.70-6.10); White Blood Cell (WBC) Count 9.1 thou/uL (4.8-10.8)
[2018-03-20 17:40] LABS: ALT (SGPT) 32 U/L (8-55); AST (SGOT) 26 U/L (5-34); Albumin 4.5 g/dL (3.5-5.0); Alkaline Phosphatase 75 U/L (40-150); Anion Gap 11 mmol/L (10-20); BUN (Urea Nitrogen) 26 mg/dL (8.4-25.7); Bilirubin, Total 0.3 mg/dL (0.2-1.2); Calc. Creatinine Clearance 0 mL/min (70-130); Calcium 9.6 mg/dL (7.8-10.44); Carbon Dioxide 26 mmol/L (22-29); Chloride 101 mmol/L (98-107); Estimated GFR-MDRD 50; Globulin 3.5 g/dL (2.4-3.5); Glucose 125 mg/dL (70-105); Potassium 4.5 mmol/L (3.5-5.1); Sodium 133 mmol/L (136-145)
== END 2018-03-20 16:58 | disposition home or self-care (01) ==
LOC: LABBT 16:57
PROVIDERS: ATTEND Internal Medicine Cardiovascular Disease
DX: Z01.812 Encounter for preprocedural laboratory examination (principal); I25.10 Atherosclerotic heart disease of native coronary artery without angina pectoris
CPT/HCPCS: 80053; 85025; 85610; 85730

== ENCOUNTER 2018-03-29 06:00 | Day surgery (SDC) | payer OTHER ==
[2018-03-20 17:22] VITALS: BMI 28.1
[2018-03-29 07:24] LABS: Cardiac Risk 3.5 (Less than 4.5)
[2018-03-29] MEDS ORDERED: Midazolam HCl 2 mg/2 ml Vial ONE (07:28)
[2018-03-29] MEDS ORDERED: Fentanyl 100 MCG/2 ML VIAL ONE (07:28)
[2018-03-29] MEDS ORDERED: Heparin 10,000 UNITS/1 ML VIAL ONE (07:47)
[2018-03-29] MEDS ORDERED: Prasugrel 10 MG TAB ONE ×2 (08:18→08:19)
[2018-03-29] MEDS ORDERED: Iopamidol 370 76% 100 ML VIAL ONE (13:21)
== END 2018-03-29 14:15 | disposition home or self-care (01) ==
LOC: CCL 06:00
PROVIDERS: ATTEND Internal Medicine Cardiovascular Disease
PROC: B2131ZZ Fluoroscopy of Multiple Coronary Artery Bypass Grafts using Low Osmolar Contrast (ICD-10-PCS; principal; 2018-03-29)
PROC: 4A023N7 Measurement of Cardiac Sampling and Pressure, Left Heart, Percutaneous Approach (ICD-10-PCS; principal; 2018-03-29)
PROC: B2111ZZ Fluoroscopy of Multiple Coronary Arteries using Low Osmolar Contrast (ICD-10-PCS; principal; 2018-03-29)
PROC: 02703EZ Dilation of Coronary Artery, One Artery with Two Intraluminal Devices, Percutaneous Approach (ICD-10-PCS; principal; 2018-03-29)
DX: I25.810 Atherosclerosis of coronary artery bypass graft(s) without angina pectoris (principal); E78.00 Pure hypercholesterolemia, unspecified; E78.5 Hyperlipidemia, unspecified; I11.0 Hypertensive heart disease with heart failure; I50.9 Heart failure, unspecified; I25.2 Old myocardial infarction; E10.9 Type 1 diabetes mellitus without complications; I25.5 Ischemic cardiomyopathy; Z79.02 Long term (current) use of antithrombotics/antiplatelets; Z79.899 Other long term (current) drug therapy; Z95.1 Presence of aortocoronary bypass graft; Z95.5 Presence of coronary angioplasty implant and graft
CPT/HCPCS: 36416; 80061; 85347; 92928; 92929; 93005; 93455; 99152; 99153; C1769; C1874; C9600; C9601; J1644; J2250; J3010

== ENCOUNTER 2019-04-03 04:47 | Emergency (ER) | payer OTHER ==
[2019-04-03 05:30] LABS: #Basophils 0.1 thou/uL (0.0-0.2); #Eosinphils 0.1 thou/uL (0.0-0.7); #Monocytes 0.9 thou/uL (0.11-0.59); #Neutrophils 10.6 thou/uL (1.40-6.50); %Basophils 0.5 % (0.0-1.0); %Eosinophils 0.5 % (0.0-10.0); %Lymphocytes 14.6 % (21.0-51.0); %Monocytes 6.9 % (0.0-10.0); %Neutrophils 77.5 % (42.0-75.0); Hemoglobin 14.2 g/dL (14.0-18.0); Mean Corpuscular Hemoglobin 26.3 pg (27.0-31.0); Mean Platelet Volume 8.8 fL (7.4-10.4); Platelet Count 275 thou/uL (130-400); RBC Distribution Width 14.2 % (11.5-14.5); Red Blood Cell (RBC) Count 5.39 mill/uL (4.70-6.10); White Blood Cell (WBC) Count 13.6 thou/uL (4.8-10.8)
[2019-04-03] MEDS ORDERED: Ondansetron ODT 4 MG TAB ONE (05:34)
[2019-04-03 05:47] LABS: ALT (SGPT) 60 U/L (8-55); AST (SGOT) 55 U/L (5-34); Albumin 4.6 g/dL (3.5-5.0); Alkaline Phosphatase 88 U/L (40-110); Anion Gap 18 mmol/L (10-20); BUN (Urea Nitrogen) 19 mg/dL (8.4-25.7); Bilirubin, Total 0.4 mg/dL (0.2-1.2); Calc. Creatinine Clearance 0 mL/min (70-130); Calcium 9.9 mg/dL (7.8-10.44); Carbon Dioxide 22 mmol/L (22-29); Chloride 104 mmol/L (98-107); Estimated GFR-MDRD 52; Globulin 3.1 g/dL (2.4-3.5); Glucose 252 mg/dL (70-105); Potassium 4.7 mmol/L (3.5-5.1); Protein, Total 7.7 g/dL (6.0-8.3); Sodium 139 mmol/L (136-145)
[2019-04-03 06:37] LABS: Bilirubin Negative (Negative); Blood, Urine Negative (Negative); Clarity Clear (Clear); Glucose, Urine (Dipstick) Greater than 1000 mg/dL (Negative); Leukocyte Negative Leu/uL (Negative); Nitrite Negative (Negative); Protein, Urine (Dipstick) 20 mg/dL (Neg-Trace); Urobilinogen Normal mg/dL (Less than 2)
[2019-04-03] MEDS ORDERED: Morphine 4 MG/ML VIAL ONE (06:41)
--- NOTE | 2019-04-03 07:36 | CT ---
CT Abdomen Pelvis W Con: 04/03/2019 6:46 AM CLINICAL INFORMATION: Right upper quadrant abdominal pain radiating to the back COMPARISON: None. TECHNIQUE: Multiple contiguous axial images were obtained and a CT of the abdomen and pelvis with IV contrast. C oronal and sagittal reformats were performed. FINDINGS: Lower Chest: within normal limits. Abdomen: Liver: within normal limits. Bile Ducts: Normal caliber. Gallbladder: Questionable hyperdensities in the dependent gallbladder could represent gallstones. Pancreas: within normal limits. Spleen: within normal limits. Adrenals: within normal limits. Kidneys: within normal limits. Pelvis: Reproductive Organs: No pelvic masses. Ureters: within normal limits. Bladder: within normal limits. Peritoneum: No ascites or free air, no fluid collection. Bowel: Normal caliber. Mesentery and Retroperitoneum: No enlarged mesenteric or retroperitoneal lymph nodes. Vessels: Atherosclerotic calcifications. Abdominal Wall: Superficial stranding in the lower abdominal wall. Bones: Within normal limits IMPRESSION: 1. No evidence of acute intraabdominal or pelvic abnormality. 2. Possible cholelithiasis
[2019-04-03] MEDS ORDERED: Ketorolac Tromethamine 30 MG/ML VIAL ONE (08:47)
--- NOTE | 2019-04-03 09:19 | ULT ---
RIGHT UPPER QUADRANT ABDOMINAL ULTRASOUND: COMPARISON: None. HISTORY: Right upper quadrant abdominal pain that radiates to the back for 1 day. TECHNIQUE: Multiplanar, horvath scale, and color Doppler images were obtained in a right upper quadrant abdominal u ltrasound. FINDINGS: The liver is normal in echogenicity without focal lesions or intrahepatic ductal dilatation. The gal lbladder is normal without stones, sludge, gallbladder wall thickening, or pericholecystic fluid. Th e common bile duct is normal measuring 5 mm. The pancreas could not be visualized. The right kidney is normal in echogenicity without hydronephro sis or calculus and measures 10.4 cm in length. IMPRESSION: Unremarkable exam. POS: [facility]
[2019-04-03] MEDS ORDERED: Iopamidol-370 76% 500 ML 1 ML ONE (09:53)
== END 2019-04-03 08:57 | disposition home or self-care (01) ==
LOC: ERS 04:47
DX: R10.11 Right upper quadrant pain (principal); I25.10 Atherosclerotic heart disease of native coronary artery without angina pectoris; I25.2 Old myocardial infarction; E10.9 Type 1 diabetes mellitus without complications; I10 Essential (primary) hypertension; E78.5 Hyperlipidemia, unspecified; E78.00 Pure hypercholesterolemia, unspecified; Z79.82 Long term (current) use of aspirin; Z79.899 Other long term (current) drug therapy
CPT/HCPCS: 36415; 74177; 76705; 80053; 81003; 83690; 84484; 85025; 93005; 96374; 96375; J1885; J2270; Q0162; Q9967

== ENCOUNTER 2019-04-07 00:12 | Inpatient (IN) | payer OTHER ==
[2019-04-07] MEDS ORDERED: Ondansetron PF 4 MG/2 ML Vial ONE ×2 (00:57→10:14)
[2019-04-07 01:11] LABS: Hemoglobin 14.9 g/dL (14.0-18.0); Mean Corpuscular HGB CONC 32.1 g/dL (32.0-36.0); Mean Corpuscular Hemoglobin 26.7 pg (27.0-31.0); Mean Corpuscular Volume 83.2 fL (78.0-98.0); Platelet Count 278 thou/uL (130-400); RBC Distribution Width 14.2 % (11.5-14.5); Red Blood Cell (RBC) Count 5.57 mill/uL (4.70-6.10); White Blood Cell (WBC) Count 22.2 thou/uL (4.8-10.8)
[2019-04-07 01:27] LABS: Band 6 % (5-11); Lymphocytes 8 % (21-51); MDiff Complete? YES; Monocytes 3 % (0-10); Neutrophil 83 % (42-75)
[2019-04-07 01:28] LABS: ALT (SGPT) 43 U/L (8-55); AST (SGOT) 36 U/L (5-34); Albumin 4.3 g/dL (3.5-5.0); Alkaline Phosphatase 97 U/L (40-110); Anion Gap 18 mmol/L (10-20); BUN (Urea Nitrogen) 20 mg/dL (8.4-25.7); Bilirubin, Total 1.4 mg/dL (0.2-1.2); Calc. Creatinine Clearance 0 mL/min (70-130); Calcium 9.5 mg/dL (7.8-10.44); Carbon Dioxide 23 mmol/L (22-29); Chloride 100 mmol/L (98-107); Estimated GFR-MDRD 63; Globulin 4.4 g/dL (2.4-3.5); Glucose 167 mg/dL (70-105); Lipase 29 U/L (8-78); Potassium 4.5 mmol/L (3.5-5.1); Protein, Total 8.7 g/dL (6.0-8.3); Sodium 136 mmol/L (136-145)
[2019-04-07 02:02] LABS: Bacteria/HPF None Seen HPF (None Seen); Bilirubin Negative (Negative); Blood, Urine 1+ (Negative); Clarity Clear (Clear); Glucose, Urine (Dipstick) Greater than 1000 mg/dL (Negative); Leukocyte Negative Leu/uL (Negative); Nitrite Negative (Negative); Protein, Urine (Dipstick) 30 mg/dL (Neg-Trace); RBC/HPF 0-3 HPF (0-3); Squamous Epithelial 0-3 HPF (0-3); Urobilinogen Normal mg/dL (Less than 2); WBC/HPF 0-3 HPF (0-3)
[2019-04-07] MEDS ORDERED: hydrALAZINE 20 MG/ML VIAL ONE (02:22)
[2019-04-07] MEDS ORDERED: ceFOXitin 2 GM/50 ML Duplex BAG ONE ×2 (04:24→12:02)
[2019-04-07 05:48] VITALS: BMI 28.1
[2019-04-07] MEDS ORDERED: Dextrose 50% Abboject 50 ML SYRINGE SLOW IVP PRN (07:15)
[2019-04-07] MEDS ORDERED: Morphine 2 MG/ML SYRINGE SLOW IVP PRN (07:15)
[2019-04-07] MEDS ORDERED: hydrALAZINE 20 MG/ML VIAL SLOW IVP PRN (07:15)
[2019-04-07] MEDS ORDERED: Dextrose 5% in Water 1,000 ML IV PRN (07:15)
[2019-04-07] MEDS ORDERED: Ondansetron PF 4 MG/2 ML Vial IVP PRN (07:15)
[2019-04-07] MEDS ORDERED: Lactated Ringer's 1,000 ML IV SCH (07:15)
[2019-04-07] MEDS: metFORMIN 500 MG TAB PO SCH ×2 (07:32→17:23)
[2019-04-07] MEDS: Lisinopril 5 MG TAB PO SCH (07:32)
[2019-04-07] MEDS: Famotidine/PF 20 mg/2ml Vial SLOW IVP SCH ×2 (07:32→19:33)
--- NOTE | 2019-04-07 07:45 | HP ---
CHIEF COMPLAINT: "My abdomen hurts." HISTORY OF PRESENT ILLNESS: The patient is a 53-year-old gentleman who presented to the emergency room 4 to 5 days ago with right upper quadrant pain. The pain was well centered and did not radiate. He was worked up for gallbladder issues and did not have any positive imaging. He did have some elevated transaminases. He was sent home with precautions. He presented last night with constant right upper quadrant pain, nausea, and vomiting. He was also have some fevers at home. The pain is 10/10, right upper quadrant, nonradiating, worse with movement. In the emergency room, he was found to have labs and radiographic evidence consistent with cholecystitis. PAST MEDICAL HISTORY: Myocardial infarction, diabetes type 1, hyperlipidemia, hypertension. PAST SURGICAL HISTORY: Coronary artery bypass grafting. ALLERGIES: NONE. MEDICATIONS: 1. Aspirin 81 mg everyday. 2. Levemir 50 to 60 units subcutaneous twice a day. 3. Levothyroxine 75 mcg everyday. 4. Lisinopril 5 mg everyday. 5. Metformin 1 g twice a day. 6. Metoprolol extended release 50 mg by mouth everyday. 7. NovoLog 30 to 40 units subcutaneously 3 times a day. 8. Zocor 20 mg everyday. 9. Effient 10 mg everyday. 10. Omeprazole 20 mg everyday. 11. Jardiance 10 mg everyday. SOCIAL HISTORY: Denies alcohol, drug or smoking history. REVIEW OF SYSTEMS: Otherwise negative for 10 systems, two-point per system, other than HPI. PHYSICAL EXAMINATION: VITAL SIGNS: Temperature 99.1, heart rate 93, blood pressure 160/80. GENERAL: A gentleman who appears to be chronically ill and older than his stated age. HEENT: Head is normocephalic, atraumatic. NECK: Supple with a midline trachea. HEART: Regularly regular without murmur. LUNGS: Grossly clear to auscultation bilaterally. ABDOMEN: Round and soft with direct tenderness to palpation of the right upper quadrant. There is Gomez sign. No palpable mass. EXTREMITIES: Full range of motion and without deformities. SKIN: Good turgor. No jaundice. PSYCHIATRIC: Good insight and good judgment. LABORATORY DATA: White blood cell count of 22.2, hemoglobin 14.9, hematocrit 46.3, neutrophils 83. AST slightly elevated at 36, total bilirubin slightly elevated at 1.4. RADIOLOGY: I independently reviewed the images as well as read the radiologist's interpretation. The patient had a CT scan of the abdomen which demonstrates a distended gallbladder with slight amount of stranding around the gallbladder. The patient also had ultrasound of the gallbladder. This demonstrates sludge, gallbladder wall of 0.3, common bile duct of 0.3. ASSESSMENT: 1. Cholecystitis. Unfortunately, the patient has had symptoms of cholecystitis for the last several days. Given his white blood cell count, tachycardia, low-grade fever, we will proceed to the operating room today for cholecystectomy. He understands this, maybe somewhat challenging given his duration of symptoms in addition to the fact he is on Effient. 2. Diabetes-the patient is on numerous diabetic regimens. We will need to monitor his glucose carefully in the postoperative period. 3. Coronary artery disease. The patient has a past history with no active chest pain. PLAN: Laparoscopic cholecystectomy today. Monitor blood glucose in the perioperative period. The patient was counseled as to the risks of the case. He agrees to proceed. I anticipate the patient to be here for at least 2 midnights given his comorbidities. Job ID: [id number]
--- NOTE | 2019-04-07 08:25 | CT ---
PRELIMINARY REPORT/[facility]/AFTER HOURS PROCEDURE CT ABDOMEN AND PELVIS WITH CONTRAST: HISTORY: Patient presents for evaluation of N/V, possible dehydration. COMPARISON: RUQ GALLBLADDER ULTRASOUND, 04/03/2019, 0624 a.m., RN PALLIATIVE FINDINGS: The lung bases are clear, without pleural effusion. No acute abnormality of the liver. The portal system is patent. The gallbladder is enlarged, with pericholecystic inflammatory change. No CT evidence for gallstones. The spleen and pancreas are normal. No adrenal nodules. No acute abnormality of the kidneys, ureters or bladder. No bowel obstruction. The appendix is normal. No intraluminal free air. No focal fluid collections to suggest abscess. No acute osseous abnormality. Nonspecific fat stranding of the subcutaneous soft tissues overlying the lower abdomen. IMPRESSION: 1. Enlargement of the gallbladder, with pericholecystic inflammatory change. Recommend further eval uation with right upper quadrant ultrasound to evaluate for the interval development of acute cholecy stitis. 2. Nonspecific inflammatory stranding within the subcutaneous soft tissues of the anterior lower abd omen, may represent sequelae of injection. ELECTRONICALLY SIGNED BY: Angel Caputo MD Apr 07, 2019 2:47:10 AM RN PALLIATIVE This report is intended for review by the ordering physician only, in accordance of law. If you recei ve this report in error, please call [facility] at [phone]. FINAL REPORT CT ABDOMEN AND PELVIS WITH IV CONTRAST: I agree with the preliminary report given by Dr. Jamie Caputo of [facility]. CODE QA POS: [facility]
[2019-04-07] MEDS ORDERED: Non-Formulary Item 1 EACH (Empagliflozin [Jardiance] 10 MG) PO SCH (09:00)
--- NOTE | 2019-04-07 09:16 | ULT ---
PRELIMINARY REPORT/[facility]/AFTER HOURS PROCEDURE RIGHT UPPER QUADRANT ABDOMEN ULTRASOUND: CLINICAL HISTORY: ABD PAIN, ELEVATED WBCS, ELEVATED LFTS TECHNIQUE: Real-time ultrasound of the right upper quadrant with image documentation. COMPARISON: None provided. FINDINGS: LIVER: Unremarkable. GALLBLADDER: No gallstone. No wall thickening. No pericholecystic fluid. Sludge in the neck of the ga llbladder. The gallbladder is distended. COMMON BILE DUCT: No dilation. It measures 3 mm. PANCREAS: Unremarkable as visualized. The distal pancreas is obscured by overlying bowel gas. RIGHT KIDNEY: Unremarkable. No hydronephrosis. It measures 10.5 cm long axis. IMPRESSION: Small sludge ball in the neck of the gallbladder. No shadowing stones are seen. ELECTRONICALLY SIGNED BY: Jad Davila MD Apr 07, 2019 7:39:12 AM [employer] [place] [employer] This report is intended for review by the ordering physician only, in accordance of law. If you recei ve this report in error, please call [facility] at [phone]. FINAL REPORT GALLBLADDER ULTRASOUND: FINDINGS: I agree with the preliminary report given by Dr. Jad Davila of [facility]. CODE QA POS: [facility]
[2019-04-07] MEDS ORDERED: Ketorolac Tromethamine 30 MG/ML VIAL ONE (10:14)
[2019-04-07] MEDS ORDERED: Metoprolol Tartrate 5 MG/5 ML VIAL ONE (10:14)
[2019-04-07] MEDS ORDERED: Lidocaine 1% PF 5 ML VIAL ONE (10:14)
[2019-04-07] MEDS ORDERED: Rocuronium Bromide 10 MG/ML (10ML VIAL) ONE (10:14)
[2019-04-07] MEDS ORDERED: Glycopyrrolate 0.2 MG/ML 5 ML SYRINGE ONE (10:14)
[2019-04-07] MEDS ORDERED: Dexamethasone 20 MG/5 ML VIAL ONE (10:14)
[2019-04-07] MEDS ORDERED: PHENYLEPHRINE-NS 100 MCG/ML 10 ML SYRINGE ONE (10:14)
[2019-04-07] MEDS ORDERED: PROPOFOL 200 MG/20 ML VIAL ONE (10:14)
[2019-04-07] MEDS ORDERED: ePHEDrine/0.9% NaCl/PF SYRINGE 50 mg/10 ml ONE (10:14)
[2019-04-07] MEDS ORDERED: Iopamidol-370 76% 500 ML 1 ML ONE (11:20)
[2019-04-07] MEDS ORDERED: Lidocaine 1% w/Epinephrine 1:100K 20 ML VIAL ONE (11:39)
[2019-04-07] MEDS ORDERED: Bupivacaine PF 0.5% 30 ML VIAL ONE (11:39)
[2019-04-07] MEDS ORDERED: Lidocaine 1% (PF) 30 ML VIAL ONE (11:39)
[2019-04-07] MEDS ORDERED: HYDROmorphone 0.5 MG/0.5 ML SYRINGE ONE (12:05)
[2019-04-07] MEDS ORDERED: Fentanyl 100 MCG/2 ML VIAL ONE ×2 (12:05→13:59)
[2019-04-07] MEDS ORDERED: HYDROmorphone 2 MG/ML VIAL SLOW IVP PRN (13:00)
[2019-04-07] MEDS ORDERED: Ondansetron HCl/PF 4 MG/2 ML Vial IVP PRN (13:00)
[2019-04-07] MEDS ORDERED: Promethazine HCl 25 MG/ML VIAL SLOW IVP PRN (13:00)
[2019-04-07] MEDS ORDERED: Promethazine HCl 25 MG/ML VIAL IM PRN (13:00)
[2019-04-07] MEDS ORDERED: PACU-Morphine 4MG/ML VIAL SLOW IVP PRN (13:00)
[2019-04-07] MEDS: cefOXitin Sodium/Dextrose,Iso 2 GM in Premix Bag 1 BAG IVPB SCH ×2 (14:13→21:06)
[2019-04-07] MEDS ORDERED: HYDROcodone/Acetaminophen 5/325 mg Tablet PO PRN (14:31)
--- NOTE | 2019-04-07 16:33 | OP ---
DATE OF PROCEDURE: 04/07/2019 PREOPERATIVE DIAGNOSIS: Acute cholecystitis. POSTOPERATIVE DIAGNOSIS: Acute cholecystitis. PROCEDURE PERFORMED: Laparoscopic cholecystectomy. ANESTHESIA: General. ESTIMATED BLOOD LOSS: Minimal. COMPLICATIONS: None. COUNTS: Sponge and needle count were correct x2. INDICATIONS FOR PROCEDURE: The patient is a 53-year-old gentleman, who presented several days ago to the emergency room. He had right upper quadrant pain. After workup, the patient was sent home. He re-presented to the emergency room last night with increasing right upper quadrant pain, nausea, and vomiting. Workup was consistent with acute cholecystitis. He is being taken to the operating room for cholecystectomy. FINDINGS: Acute cholecystitis. Critical view of safety was obtained. CONDUCT OF OPERATION: After written preoperative informed consent, the patient was taken to the operating room, placed in the supine position and intubated. The abdomen was prepared and draped in a sterile fashion. A time-out was performed. A direct optical entry technique was used in the right upper quadrant. Pneumoperitoneum was established. Additional trocars were placed in the right costal margins in the usual locations. An umbilical trocar was placed. Upon visualizing the right upper quadrant. The omentum was over the liver. This was reduced until the fundus of the gallbladder was encountered. The omentum was somewhat adhered. This was easily taken down with the suction microbiology technician. Once the omentum had been from the undersurface of the gallbladder, an aspiration needle was inserted into the fundus and the contents were aspirated in order to gain purchase on the gallbladder. Next, the fundus was retracted over the dome of the liver. There were the usual acute cholecystitis type changes within the triangle of Calot. Some additional omentum was taken down with the suction microbiology technician. The infundibulum was grasped and dissection was carried out first on the lateral aspect of the gallbladder to free it from the liver. Dissection then carried around the infundibulum until the cystic duct was encountered. Additional dissection was carried medially until the cystic artery was identified. The remainder of the loose areolar tissue was brought down with the suction microbiology technician. The critical view of safety was thus obtained. Clips were placed proximally and distally on the cystic duct and cystic artery. These structures were divided. The gallbladder was then removed off the gallbladder bed fossa utilizing hook cautery. The patient is on anticoagulation, in combination with acute cholecystitis, the liver bed was somewhat oozy but without a visible vessel. After irrigation, this cleared. I elected to place some Ale within the bed of dissection. The right upper quadrant had been previously irrigated prior to Ale placement. The clips were inspected and were found to be in good position. The gallbladder was then placed in an Endo Catch bag and removed via the umbilicus. The fascia at the umbilicus was closed with a 0 Vicryl suture utilizing a suture passer. All wounds were irrigated and closed with Monocryl. Surgical skin glue was applied. The patient was extubated and taken to postanesthesia care area in good condition having tolerated the procedure well. Job ID: [id number]
[2019-04-07] MEDS ORDERED: Enoxaparin Sodium 40 MG/0.4 ML SYRINGE SC SCH (21:00)
[2019-04-07] MEDS: HumaLOG 300 UNITS/3 ML VIAL SC PRN (21:15)
[2019-04-08] MEDS: HumaLOG 300 UNITS/3 ML VIAL SC PRN ×4 (01:21→11:26)
[2019-04-08 04:55] LABS: #Lymphocytes 2.1 thou/uL (1.20-3.40); #Monocytes 1.4 thou/uL (0.11-0.59); #Neutrophils 11.6 thou/uL (1.40-6.50); %Basophils 0.2 % (0.0-1.0); %Eosinophils 0.1 % (0.0-10.0); %Monocytes 9.3 % (0.0-10.0); %Neutrophils 76.4 % (42.0-75.0); Hemoglobin 12.7 g/dL (14.0-18.0); Mean Corpuscular HGB CONC 31.1 g/dL (32.0-36.0); Mean Corpuscular Hemoglobin 26.3 pg (27.0-31.0); Mean Corpuscular Volume 84.7 fL (78.0-98.0); Mean Platelet Volume 9.2 fL (7.4-10.4); Platelet Count 341 thou/uL (130-400); RBC Distribution Width 14.4 % (11.5-14.5); Red Blood Cell (RBC) Count 4.82 mill/uL (4.70-6.10); White Blood Cell (WBC) Count 15.1 thou/uL (4.8-10.8)
[2019-04-08 05:06] LABS: ALT (SGPT) 34 U/L (8-55); AST (SGOT) 29 U/L (5-34); Albumin 3.5 g/dL (3.5-5.0); Alkaline Phosphatase 94 U/L (40-110); Anion Gap 22 mmol/L (10-20); BUN (Urea Nitrogen) 33 mg/dL (8.4-25.7); Bilirubin, Total 1.2 mg/dL (0.2-1.2); Calc. Creatinine Clearance 68 mL/min (70-130); Calcium 8.7 mg/dL (7.8-10.44); Carbon Dioxide 13 mmol/L (22-29); Chloride 106 mmol/L (98-107); Estimated GFR-MDRD 50; Globulin 3.7 g/dL (2.4-3.5); Glucose 230 mg/dL (70-105); Potassium 5.3 mmol/L (3.5-5.1); Protein, Total 7.2 g/dL (6.0-8.3); Sodium 136 mmol/L (136-145)
[2019-04-08] MEDS: cefOXitin Sodium/Dextrose,Iso 2 GM in Premix Bag 1 BAG IVPB SCH ×2 (05:15→13:56)
[2019-04-08] MEDS: metFORMIN 500 MG TAB PO SCH (08:56)
[2019-04-08] MEDS: Famotidine/PF 20 mg/2ml Vial SLOW IVP SCH (08:57)
[2019-04-08] MEDS ORDERED: Sodium Chloride 0.9% 500 ML IV SCH (10:00)
[2019-04-08] MEDS ORDERED: Insulin Glargine 20 UNITS in Pre-Filled Syringe 1 EACH SC SCH (10:00)
[2019-04-08] MEDS: Lisinopril 5 MG TAB PO SCH (10:43)
[2019-04-08 11:59] VITALS: BP 125/79; TEMP 98.3
--- NOTE | 2019-04-09 04:07 | DIS ---
DATE OF ADMISSION: 04/07/2019 DATE OF DISCHARGE: 04/08/2019 DISCHARGING PHYSICIAN: Frankie Lema DO. ADMITTING DIAGNOSIS: Acute acalculous cholecystitis. DISCHARGE DIAGNOSIS: Acute acalculous cholecystitis. OPERATIONS PERFORMED: Laparoscopic cholecystectomy on 04/07/[address] Joe Aleman. Please see a separate dictation for the OP report. HISTORY AND HOSPITAL COURSE: A 53-year-old man presented with right upper quadrant abdominal pain. Clinical and radiographic examinations were consistent with acute acalculous cholecystitis for which the patient underwent an uneventful laparoscopic cholecystectomy on admission yesterday. Following surgery, he is admitted to the surgical floor where he remained at time of discharge. Postop day #1, he is ambulating with minimum difficulty. He is tolerating general diet having normal bowel and urinary function. He has remained hemodynamically stable and afebrile through this hospitalization. Abdominal examination reveals intact and clean incisional wounds. He clearly has no peritoneal signs on examination. LABORATORY STUDIES: Includes a CBC with 15,000 white blood cells, down from 22,200 yesterday. Hemoglobin and hematocrit are stable at 12.7 and 40.8 respectively. Platelet count is also stable at . Metabolic profile; sodium is 136, potassium is 5.3, chloride is 106, bicarb is 13, BUN is 33, creatinine is 1.46, glucose is 230. DISCHARGE INSTRUCTIONS: 1. The patient will be discharged home today with the following instructions: 2. He is to resume all his prehospital medication as prescribed by his primary care physician including his insulin regimen. 3. He is to follow up with Dr. Turpin in [facility] in 2 weeks. 4. He is to follow up with his primary care physician within 1 week of discharge with a repeat metabolic profile. 5. He is to call Dr. Turpin with any questions or problems including exacerbation of abdominal pain, intolerance to oral intake, or fever in excess of 101 degrees Fahrenheit. 6. He may shower effective tomorrow and avoid soaking himself in a bathtub or swimming until he has been released by Dr. Turpin. 7. His weight lifting is limited to 20 pounds until released by Dr. Turpin. Above instructions given to the patient, who indicates understanding information given. I have answered his questions. The patient has expressed gratitude for the care rendered to him during this hospitalization and surgery. Job ID: [id number]
== END 2019-04-08 15:05 | disposition home or self-care (01) | DRG 419 ==
LOC: ERS 00:12 → SURG B 04:34
PROVIDERS: ADMIT Surgery; ATTEND Surgery
PROC: 0FT44ZZ Resection of Gallbladder, Percutaneous Endoscopic Approach (ICD-10-PCS; principal; 2019-04-07)
DX: K81.0 Acute cholecystitis (principal); I10 Essential (primary) hypertension; E78.5 Hyperlipidemia, unspecified; E10.8 Type 1 diabetes mellitus with unspecified complications; I25.10 Atherosclerotic heart disease of native coronary artery without angina pectoris; Z95.1 Presence of aortocoronary bypass graft; I25.2 Old myocardial infarction
CPT/HCPCS: 36415; 36416; 74177; 76705; 80053; 81003; 81015; 83690; 84484; 85025; 88304; 96361; 96365; 96372; 96375; J0360; J0500; J0694; J1100; J1170; J1650; J1815; J1885; J2001; J2405; J2704; J3010; J7120; Q9967; S0020; S0028

== ENCOUNTER 2020-05-29 15:46 | Outpatient (CLI) | payer BC ==
--- NOTE | 2020-05-29 17:41 | RAD ---
RIGHT FOOT THREE VIEWS: 05/29/20 INDICATION: History of right foot pain. COMPARISON: None. FINDINGS: There is enthesopathic change off the plantar calcaneus. There are Monckeberg calcifications within t he soft tissues of the right foot. There are scattered forefoot and midfoot osteoarthrosis. Lisfranc alignment is preserved. No radiopaque foreign body is grossly evident. IMPRESSION: No acute osseous abnormality. POS: BH
== END 2020-05-29 15:47 | disposition home or self-care (01) ==
LOC: BICRAD 15:46
PROVIDERS: ATTEND Family Medicine
DX: M79.671 Pain in right foot (principal)

== ENCOUNTER 2023-09-19 15:05 | Outpatient (CLI) | payer BC ==
[2023-09-19 16:03] LABS: #Basophils 0.06 10x3/uL (0.0-0.2); #Eosinphils 0.18 10x3/uL (0.0-0.5); #Monocytes 0.76 10x3/uL (0.0-1.1); #Neutrophils 5.26 10x3/uL (1.5-8.4); %Basophils 0.7 % (0.0-2.0); %Lymphocytes 31.9 % (18.0-47.0); %Monocytes 8.2 % (0.0-10.0); Hematocrit 47.5 % (38.8-50.0); Hemoglobin 15.7 g/dL (13.5-17.5); Mean Corpuscular HGB CONC 33.1 g/dL (32.0-36.0); Mean Corpuscular Hemoglobin 29.9 pg (27.0-33.0); Mean Corpuscular Volume 90.5 fL (81.2-95.1); Mean Platelet Volume 10.3 fL (7.4-10.4); Platelet Count 302 10x3/uL (150-450); RBC Distribution Width 13.1 % (11.5-14.5); Red Blood Cell (RBC) Count 5.25 10x6/uL (4.32-5.72); White Blood Cell (WBC) Count 9.2 10x3/uL (3.5-10.5)
[2023-09-19 16:25] LABS: ALT (SGPT) 44 U/L (8-55); AST (SGOT) 30 U/L (5-34); Albumin 3.9 g/dL (3.5-5.0); Alkaline Phosphatase 65 U/L (40-110); Anion Gap 14 mmol/L (10-20); BUN (Urea Nitrogen) 18 mg/dL (8.4-25.7); Bilirubin, Direct 0.3 mg/dL (0.1-0.3); Bilirubin, Total 0.7 mg/dL (0.2-1.2); Calc. Creatinine Clearance 0 mL/min (70-130); Calcium 9.5 mg/dL (7.8-10.44); Carbon Dioxide 25 mmol/L (22-29); Chloride 105 mmol/L (98-107); Estimated GFR 63; Glucose 94 mg/dL (70-105); Potassium 4.6 mmol/L (3.5-5.1); Protein, Total 6.9 g/dL (6.0-8.3); Sodium 139 mmol/L (136-145)
== END 2023-09-19 15:06 | disposition home or self-care (01) ==
LOC: LABBT 15:05
PROVIDERS: ATTEND Internal Medicine Cardiovascular Disease
DX: Z01.812 Encounter for preprocedural laboratory examination (principal)
CPT/HCPCS: 80053; 80076; 85025

== ENCOUNTER 2023-09-21 10:35 | Day surgery (SDC) | payer BC ==
[2023-09-19 15:43] VITALS: BMI 28.8
[2023-09-21] MEDS ORDERED: Nitroglycerin 50 MG/250 ML BOT 0 ML ONE (11:32)
[2023-09-21] MEDS ORDERED: Heparin 10,000 UNITS/ 10 ML VIAL ONE (11:32)
[2023-09-21] MEDS ORDERED: Adenosine 6 mg (2 mL) VIAL ONE (11:36)
[2023-09-21] MEDS ORDERED: Iopamidol 370 76% 100 ML VIAL ONE (12:04)
[2023-09-21 12:16] LABS: Cardiac Risk 3.5 (Less than 4.5)
[2023-09-21] MEDS ORDERED: fentaNYL 50 mcg/mL 1 mL Vial ONE (12:26)
[2023-09-21] MEDS ORDERED: Midazolam HCl 2 mg/2 ml Vial ONE (12:27)
[2023-09-21] MEDS ORDERED: Prasugrel 10 MG TAB ONE ×2 (13:34→13:37)
== END 2023-09-21 17:20 | disposition home or self-care (01) ==
LOC: SDC 10:35
PROVIDERS: ATTEND Internal Medicine Cardiovascular Disease
PROC: 4A023N7 Measurement of Cardiac Sampling and Pressure, Left Heart, Percutaneous Approach (ICD-10-PCS; principal; 2023-09-21)
DX: I25.10 Atherosclerotic heart disease of native coronary artery without angina pectoris (principal); I10 Essential (primary) hypertension; I25.5 Ischemic cardiomyopathy; Z95.1 Presence of aortocoronary bypass graft; Z95.818 Presence of other cardiac implants and grafts; Z90.49 Acquired absence of other specified parts of digestive tract; E10.9 Type 1 diabetes mellitus without complications; E78.5 Hyperlipidemia, unspecified; E07.9 Disorder of thyroid, unspecified; Z86.16 Personal history of COVID-19; Z79.82 Long term (current) use of aspirin; Z79.84 Long term (current) use of oral hypoglycemic drugs; Z79.890 Hormone replacement therapy; Z79.899 Other long term (current) drug therapy
CPT/HCPCS: 36416; 80061; 85347; 92928; 93005; 93459; 99152; 99153; C1725; C1760; C1761; C1769; C1874; C1887; C9600; J0153; J1644; J2250; J3010; Q9967

== ENCOUNTER 2024-03-06 02:01 | Inpatient (IN) | payer BC ==
[2024-03-06] MEDS ORDERED: Ondansetron PF 4 MG/2 ML Vial ONE (02:35)
[2024-03-06] MEDS ORDERED: Adenosine 6 mg (2 mL) VIAL ONE ×2 (02:44→15:45)
[2024-03-06] MEDS ORDERED: Heparin 10,000 UNITS/ 10 ML VIAL ONE ×2 (03:02→15:46)
[2024-03-06] MEDS ORDERED: Prasugrel 10 MG TAB ONE (03:31)
[2024-03-06] MEDS ORDERED: Dextrose 5% in Water 1,000 ML IV PRN (03:45)
[2024-03-06] MEDS ORDERED: Tirofiban-0.9% Sodium Chloride 250 ML IVPB SCH (03:45)
[2024-03-06] MEDS ORDERED: Glucagon 1 MG/ML KIT IM PRN (03:45)
[2024-03-06] MEDS ORDERED: Dextrose 50% Abboject 50 ML SYRINGE SLOW IVP PRN (03:45)
[2024-03-06 04:49] LABS: #Basophils 0.04 10x3/uL (0.0-0.2); #Eosinophils Less than 0.03 10x3/uL (0.0-0.7); %Basophils 0.2 % (0.0-1.0); %Eosinophils 0.1 % (0.0-10.0); %Lymphocytes 11.2 % (21.0-51.0); %Monocytes 3.8 % (0.0-10.0); %Neutrophils 84.4 % (42.0-75.0); Hematocrit 48.4 % (42.0-52.0); Hemoglobin 15.9 g/dL (14.0-18.0); Mean Corpuscular HGB CONC 32.9 g/dL (32.0-36.0); Mean Corpuscular Hemoglobin 29.2 pg (27.0-31.0); Mean Platelet Volume 10.7 fL (7.4-10.4); Platelet Count 347 10x3/uL (130-400); RBC Distribution Width 13.2 % (11.5-14.5); Red Blood Cell (RBC) Count 5.44 mill/uL (4.70-6.10)
[2024-03-06] MEDS: Promethazine HCl 12.5 MG in Sodium Chloride 0.9% 50 ML IVPB SCH (04:57)
[2024-03-06] MEDS: Prasugrel 10 MG TAB PO SCH ×2 (04:58→09:08)
[2024-03-06] MEDS: Morphine 2 MG/ML VIAL SLOW IVP PRN (05:05)
[2024-03-06] MEDS: Pantoprazole 40 MG VIAL IVP SCH (05:06)
[2024-03-06] MEDS: Sodium Chloride 0.9% 500 ML IV SCH (05:06)
[2024-03-06 05:14] LABS: ALT (SGPT) 38 U/L (8-55); AST (SGOT) 63 U/L (5-34); Albumin 3.8 g/dL (3.5-5.0); Alkaline Phosphatase 59 U/L (40-110); Anion Gap 17 mmol/L (10-20); BUN (Urea Nitrogen) 18 mg/dL (8.4-25.7); Bilirubin, Total 1.3 mg/dL (0.2-1.2); Calc. Creatinine Clearance 0 mL/min (70-130); Calcium 8.5 mg/dL (7.8-10.44); Carbon Dioxide 16 mmol/L (22-29); Cardiac Risk 2.7 (Less than 4.5); Chloride 106 mmol/L (98-107); Cholesterol 110 mg/dl (< 200 Desired); Estimated GFR 68; Globulin 3.1 g/dL (2.4-3.5); Glucose 202 mg/dL (70-105); HDL Cholesterol 41 mg/dL (>60 Neg Risk); LDL Cholesterol, Calculated 55 mg/dL; Potassium 3.9 mmol/L (3.5-5.1); Protein, Total 6.9 g/dL (6.0-8.3); Sodium 135 mmol/L (136-145); Triglycerides 70 mg/dL (Less than 150)
[2024-03-06 05:17] LABS: Troponin I 4.049 ng/mL (< 0.028)
[2024-03-06 05:27] LABS: Free T4 (Free Thyroxine) 1.09 ng/dL (0.70-1.48); Thyroid Stimulating Hormone 1.3428 uIU/mL (0.35-4.94)
[2024-03-06 05:28] LABS: INR-International Normal Ratio 1.3; Prothrombin Time 16.4 sec (12.0-14.7)
[2024-03-06] MEDS: Levothyroxine Sodium 100 MCG TAB PO SCH (06:24)
[2024-03-06 06:38] LABS: PTT Greater than 250.0 sec (22.9-36.1)
[2024-03-06] MEDS ORDERED: Iopamidol 370 76% 100 ML VIAL ONE ×2 (09:00→09:37)
[2024-03-06] MEDS: FLU (Fluarix Triv) TS24-25(6MOS UP)/PF 45 MCG/0.5 ML Syringe IM ONE (09:02)
[2024-03-06] MEDS: Aspirin Chewable 81 MG TAB PO SCH (09:08)
[2024-03-06] MEDS ORDERED: Nitroglycerin 50 MG/250 ML BOT 250 ML IVPB SCH (10:15)
[2024-03-06] MEDS: Ondansetron ODT 4 MG TAB PO PRN (10:50)
[2024-03-06] MEDS: Pantoprazole 80 MG, Admixture Fee 1 EACH in Sodium Chloride 0.9% 100 ML IVPB SCH (10:50)
[2024-03-06] MEDS: Insulin Lispro 100 UNIT/ML 10 ML VIAL SC PRN (12:58)
[2024-03-06 13:54] LABS: #Basophils 0.03 10x3/uL (0.0-0.2); #Eosinophils Less than 0.03 10x3/uL (0.0-0.7); %Basophils 0.1 % (0.0-1.0); %Lymphocytes 5.6 % (21.0-51.0); %Monocytes 5.1 % (0.0-10.0); %Neutrophils 88.7 % (42.0-75.0); Hemoglobin 15.8 g/dL (14.0-18.0); Mean Corpuscular HGB CONC 32.9 g/dL (32.0-36.0); Mean Corpuscular Hemoglobin 29.6 pg (27.0-31.0); Mean Corpuscular Volume 90.1 fL (78.0-98.0); Mean Platelet Volume 10.4 fL (7.4-10.4); Platelet Count 390 10x3/uL (130-400); RBC Distribution Width 13.5 % (11.5-14.5); Red Blood Cell (RBC) Count 5.33 mill/uL (4.70-6.10)
[2024-03-06] MEDS: Dexmedetomidine In 0.9 % NaCl 100 ML IVPB SCH (14:07)
[2024-03-06 14:43] LABS: Troponin I 83.065 ng/mL (< 0.028)
[2024-03-06] MEDS ORDERED: PHENYLEPHRINE-NS 100 MCG/ML 10 ML SYRINGE ONE (15:45)
[2024-03-06] MEDS ORDERED: Atropine Sulfate 1 mg/10 ml Syringe ONE (15:45)
[2024-03-06] MEDS ORDERED: fentaNYL 50 mcg/mL 1 mL Vial ONE (15:45)
[2024-03-06] MEDS ORDERED: Nitroglycerin 50 MG/250 ML BOT 0 ML ONE (15:46)
[2024-03-06] MEDS ORDERED: Midazolam HCl 2 mg/2 ml Vial ONE ×2 (15:46→16:21)
[2024-03-06] MEDS ORDERED: Verapamil 5 MG/2 ML VIAL ONE (15:46)
[2024-03-06] MEDS ORDERED: SUCCINYLCHOLINE/SOD CL,ISO/PF 200 MG/10 ML SYRINGE FS ONE (16:21)
[2024-03-06] MEDS ORDERED: Etomidate 40 MG (20 mL) VIAL ONE (16:21)
[2024-03-06] MEDS ORDERED: Rocuronium Bromide 50 MG/5 ML VIAL ONE (16:22)
[2024-03-06] MEDS ORDERED: Heparin 25,000 units/D5W 500 ML ONE (16:36)
[2024-03-06 17:55] LABS: Actual Bicarbonate (HCO3a) 8.9 mEq/L (22-28); Analyzer IN Cardio OR; Base Excess (BEa) -21.5 mEq/L (-2.0 to +3.0); CO2 Tension 35.8 mmHg (35.0-45.0); Calcium, Ionized (arterial) 1.13 mmol/L (1.12-1.30); Carboxyhemoglobin (COHb) 0.4 gm% (0.0-3.0); Hematocrit-ABG 43 % (42.0-52.0); Hemoglobin (Hb) 14.6 g/dL (14.0-18.0); O2 Tension (PaO2), arterial 92.2 mmHg (> 80.0); Potassium - ABG Lab 3.79 mmol/L (3.70-5.30); Puncture Site Arterial Line; pH, Arterial 7.012 (7.35-7.45)
[2024-03-06] MEDS ORDERED: Morphine 2 MG/ML VIAL SLOW IVP PRN (18:30)
[2024-03-06] MEDS ORDERED: Fentanyl BOLUS 250 ML IVPB PRN (18:30)
[2024-03-06] MEDS ORDERED: DISCONTINUE PREVIOUS NARCOTIC PAIN MEDICATIONS AND BENZODIAZEPINES FS SCH (18:30)
[2024-03-06] MEDS ORDERED: Propofol BOLUS 1,000 MG/100 ML VIAL IV PRN (18:30)
[2024-03-06] MEDS: Fentanyl CADD 100 ML IV SCH (18:49)
[2024-03-06] MEDS: Heparin 25,000 units/D5W 500 ML IV SCH (19:00)
[2024-03-06] MEDS: Propofol 1,000 MG/100 ML VIAL IV PRN (19:02)
[2024-03-06] MEDS: Sodium Bicarbonate 25 MEQ in Dextrose 5% in Water 1,000 ML IV SCH (19:12)
[2024-03-06] MEDS: Lorazepam 2 MG/ML VIAL SLOW IVP PRN (19:47)
[2024-03-06] MEDS: Atorvastatin Calcium 40 MG TAB PO SCH (20:59)
[2024-03-06] MEDS ORDERED: Pantoprazole 40 MG VIAL IVP SCH (21:00)
[2024-03-06] MEDS: Sodium Chloride 0.9% 250 ML 250 ML IVPB SCH (21:04)
[2024-03-06] MEDS ORDERED: Sodium Chloride 0.9% 500 ML IV SCH (21:30)
[2024-03-06] MEDS: Sodium Bicarb 50 mEq/50 ML VIAL IVP SCH (22:30)
[2024-03-06] MEDS: Lactated Ringer's 250 ML IV SCH (22:30)
[2024-03-06] MEDS: NOREPINEPHRINE 8 MG/250 ML-D5W 250 ML IVPB SCH (22:30)
[2024-03-06 22:38] LABS: Actual Bicarbonate (HCO3a) 22.2 mEq/L (22-28); Base Excess (BEa) 1.7 mEq/L (-2.0 to +3.0); Calcium, Ionized (arterial) 0.98 mmol/L (1.12-1.30); Carboxyhemoglobin (COHb) 0.4 gm% (0.0-3.0); Hematocrit-ABG 39 % (42.0-52.0); Hemoglobin (Hb) 13.4 g/dL (14.0-18.0); Potassium - ABG Lab 5.13 mmol/L (3.70-5.30); pH, Arterial 7.578 (7.35-7.45)
[2024-03-06 22:39] LABS: CO2 Tension 24.3 mmHg (35.0-45.0); Puncture Site LR
[2024-03-06 22:40] LABS: ALV-art Gradient 197.125 mmHg (0-20)
[2024-03-06] MEDS: Sodium Bicarb 50 MEQ/50 ML Abboject 8.4% SYRINGE ONE (23:16)
[2024-03-07] MEDS ORDERED: Vancomycin 2 GM in Sodium Chloride 0.9% 500 ML IVPB SCH (00:30)
[2024-03-07] MEDS: Acetaminophen 325 MG TAB PO PRN (00:38)
[2024-03-07] MEDS: Vancomycin (BATCH) 2 GM in Premix 1 BAG IVPB SCH (00:50)
[2024-03-07 01:17] LABS: Lactic Acid 3.96 mmol/L (0.5-2.2)
[2024-03-07 01:56] LABS: Bilirubin Negative (Negative); Blood, Urine 3+ (Negative); Clarity Clear (Clear); Glucose, Urine (Dipstick) Greater than 1000 mg/dL (Negative); Ketone, Urine 60 mg/dL (Negative); Leukocyte 25 Leu/uL (Negative); Nitrite Negative (Negative); Protein, Urine (Dipstick) 100 mg/dL (Neg-Trace); Squamous Epithelial None Seen HPF (0-3); Urobilinogen Normal mg/dL (Less than 2); WBC/HPF 0-3 HPF (0-3)
[2024-03-07 01:58] LABS: Specific Gravity, Urine 1.047 (1.002-1.036)
[2024-03-07 01:59] LABS: Bacteria/HPF Rare-Few HPF (None Seen)
[2024-03-07 02:36] LABS: #Basophils 0.03 10x3/uL (0.0-0.2); #Eosinophils Less than 0.03 10x3/uL (0.0-0.7); %Basophils 0.2 % (0.0-1.0); %Lymphocytes 18.6 % (21.0-51.0); %Monocytes 9.4 % (0.0-10.0); %Neutrophils 71.4 % (42.0-75.0); Hematocrit 45.3 % (42.0-52.0); Hemoglobin 15.1 g/dL (14.0-18.0); Mean Corpuscular HGB CONC 33.3 g/dL (32.0-36.0); Mean Corpuscular Hemoglobin 29.9 pg (27.0-31.0); Mean Corpuscular Volume 89.7 fL (78.0-98.0); Mean Platelet Volume 11.1 fL (7.4-10.4); Platelet Count 341 10x3/uL (130-400); RBC Distribution Width 13.8 % (11.5-14.5); Red Blood Cell (RBC) Count 5.05 mill/uL (4.70-6.10)
[2024-03-07 02:47] LABS: Vancomycin, Random Less than 1.4 ug/mL (See Comment)
[2024-03-07 03:16] LABS: ALT (SGPT) 170 U/L (8-55); AST (SGOT) 972 U/L (5-34); Albumin 3.4 g/dL (3.5-5.0); Alkaline Phosphatase 57 U/L (40-110); Anion Gap 22 mmol/L (10-20); BUN (Urea Nitrogen) 33 mg/dL (8.4-25.7); Bilirubin, Total 2.9 mg/dL (0.2-1.2); Calc. Creatinine Clearance 56 mL/min (70-130); Carbon Dioxide 17 mmol/L (22-29); Chloride 105 mmol/L (98-107); Estimated GFR 42; Globulin 3.2 g/dL (2.4-3.5); Glucose 303 mg/dL (70-105); Potassium 5.3 mmol/L (3.5-5.1); Protein, Total 6.6 g/dL (6.0-8.3); Sodium 139 mmol/L (136-145)
[2024-03-07] MEDS: Cefepime 2 GM in Sodium Chloride 0.9% 100 ML IVPB SCH (05:46)
[2024-03-07 06:32] LABS: ALT (SGPT) 181 U/L (8-55); AST (SGOT) 1002 U/L (5-34); Albumin 2.8 g/dL (3.5-5.0); Alkaline Phosphatase 46 U/L (40-110); Anion Gap 15 mmol/L (10-20); BUN (Urea Nitrogen) 35 mg/dL (8.4-25.7); Bilirubin, Total 2.8 mg/dL (0.2-1.2); Calc. Creatinine Clearance 58 mL/min (70-130); Calcium 7.4 mg/dL (7.8-10.44); Carbon Dioxide 21 mmol/L (22-29); Chloride 107 mmol/L (98-107); Estimated GFR 45; Globulin 2.4 g/dL (2.4-3.5); Glucose 263 mg/dL (70-105); Magnesium 2.1 mg/dL (1.6-2.6); Potassium 3.8 mmol/L (3.5-5.1); Protein, Total 5.2 g/dL (6.0-8.3); Sodium 139 mmol/L (136-145)
[2024-03-07 06:34] VITALS: BMI 31.1
[2024-03-07 07:23] LABS: Vancomycin, Random 42.8 ug/mL (See Comment)
[2024-03-07 08:22] LABS: Actual Bicarbonate (HCO3a) 20.2 mEq/L (22-28); Base Excess (BEa) -0.3 mEq/L (-2.0 to +3.0); Calcium, Ionized (arterial) 1.06 mmol/L (1.12-1.30); Hematocrit-ABG 40 % (42.0-52.0); Hemoglobin (Hb) 13.7 g/dL (14.0-18.0); O2 Tension (PaO2), arterial 89.3 mmHg (> 80.0); Potassium - ABG Lab 3.71 mmol/L (3.70-5.30); pH, Arterial 7.555 (7.35-7.45)
[2024-03-07 08:24] LABS: CO2 Tension 23.4 mmHg (35.0-45.0); Puncture Site LR
[2024-03-07] MEDS: Sodium Chloride 0.9% 1,000 ML IV SCH (08:30)
[2024-03-07] MEDS: Acetaminophen 650 MG Suppository PR PRN (09:13)
[2024-03-07] MEDS ORDERED: Vancomycin 1 GM in Premix 1 BAG IVPB SCH (13:00)
[2024-03-07] MEDS: Heparin 10,000 UNITS/ 10 ML VIAL SLOW IVP SCH (13:00)
[2024-03-07 15:04] VITALS: BMI 31.1
[2024-03-07] MEDS: cefTRIAXone\\ROCEPHIN 2 GM in Sodium Chloride 0.9% 100 ML IVPB SCH (16:28)
[2024-03-07 19:30] LABS: Anion Gap 14 mmol/L (10-20); BUN (Urea Nitrogen) 36 mg/dL (8.4-25.7); Calc. Creatinine Clearance 75 mL/min (70-130); Calcium 7.5 mg/dL (7.8-10.44); Carbon Dioxide 21 mmol/L (22-29); Chloride 108 mmol/L (98-107); Estimated GFR 59; Glucose 240 mg/dL (70-105); Potassium 4.2 mmol/L (3.5-5.1); Sodium 139 mmol/L (136-145)
[2024-03-07] MEDS: VANCOMYCIN 1.25 GM/250 ML BAG 1.25 GM in Premix 1 BAG IVPB SCH (21:02)
[2024-03-07] MEDS: Pantoprazole 40 MG VIAL IVP SCH (21:03)
[2024-03-08 03:29] LABS: Actual Bicarbonate (HCO3a) 24.5 mEq/L (22-28); Analyzer IN Cardio ER; Base Excess (BEa) 0.5 mEq/L (-2.0 to +3.0); CO2 Tension 37.4 mmHg (35.0-45.0); Calcium, Ionized (arterial) 1.06 mmol/L (1.12-1.30); Carboxyhemoglobin (COHb) 0.8 gm% (0.0-3.0); Hematocrit-ABG 36 % (42.0-52.0); Hemoglobin (Hb) 12.3 g/dL (14.0-18.0); O2 Tension (PaO2), arterial 108.2 mmHg (> 80.0); Potassium - ABG Lab 3.76 mmol/L (3.70-5.30); pH, Arterial 7.434 (7.35-7.45)
[2024-03-08 03:33] LABS: Puncture Site RBR
[2024-03-08 04:21] LABS: #Basophils 0.04 10x3/uL (0.0-0.2); %Basophils 0.2 % (0.0-1.0); %Eosinophils 0.2 % (0.0-10.0); %Lymphocytes 14.9 % (21.0-51.0); %Monocytes 10.4 % (0.0-10.0); %Neutrophils 73.9 % (42.0-75.0); Hematocrit 35.4 % (42.0-52.0); Hemoglobin 11.5 g/dL (14.0-18.0); Mean Corpuscular HGB CONC 32.5 g/dL (32.0-36.0); Mean Corpuscular Hemoglobin 29.9 pg (27.0-31.0); Mean Corpuscular Volume 91.9 fL (78.0-98.0); Mean Platelet Volume 10.8 fL (7.4-10.4); Platelet Count 186 10x3/uL (130-400); RBC Distribution Width 13.8 % (11.5-14.5); Red Blood Cell (RBC) Count 3.85 mill/uL (4.70-6.10)
[2024-03-08 04:33] LABS: Vancomycin, Random 14.2 ug/mL (See Comment)
[2024-03-08 04:39] LABS: ALT (SGPT) 221 U/L (8-55); AST (SGOT) 576 U/L (5-34); Albumin 2.5 g/dL (3.5-5.0); Alkaline Phosphatase 48 U/L (40-110); Anion Gap 12 mmol/L (10-20); BUN (Urea Nitrogen) 29 mg/dL (8.4-25.7); Bilirubin, Total 1.9 mg/dL (0.2-1.2); Calc. Creatinine Clearance 87 mL/min (70-130); Calcium 7.5 mg/dL (7.8-10.44); Carbon Dioxide 23 mmol/L (22-29); Chloride 107 mmol/L (98-107); Estimated GFR 70; Globulin 2.5 g/dL (2.4-3.5); Glucose 196 mg/dL (70-105); Potassium 3.7 mmol/L (3.5-5.1); Sodium 138 mmol/L (136-145)
[2024-03-08 11:24] VITALS: BP 100/66
[2024-03-08] MEDS ORDERED: Heparin 5,000 UNITS/ML VIAL ONE (12:04)
[2024-03-08] MEDS ORDERED: Bupivacaine PF 0.5% 30 ML VIAL ONE (12:04)
[2024-03-08] MEDS ORDERED: EPINEPHrine 1 MG/ML VIAL ONE (12:04)
[2024-03-08] MEDS ORDERED: Iopamidol 0 ML ONE (12:04)
[2024-03-08] MEDS: VANCOMYCIN 1.25 GM/250 ML BAG 1.25 GM in Premix 1 BAG IVPB SCH (12:07)
[2024-03-08] MEDS ORDERED: Sodium Bicarb 50 MEQ/50 ML Abboject 8.4% SYRINGE ONE ×2 (12:11→23:27)
[2024-03-08] MEDS ORDERED: Heparin 10,000 UNITS/ 10 ML VIAL ONE ×2 (12:14→13:50)
[2024-03-08] MEDS ORDERED: Rocuronium Bromide 10 MG/ML (10ML VIAL) ONE (12:28)
[2024-03-08] MEDS ORDERED: fentaNYL 50 mcg/mL 1 mL Vial ONE (12:28)
[2024-03-08] MEDS ORDERED: Lidocaine 1% PF 5 ML VIAL ONE (12:28)
[2024-03-08] MEDS ORDERED: PROPOFOL 20 ML ONE (12:28)
[2024-03-08] MEDS ORDERED: PHENYLEPHRINE-NS 100 MCG/ML 10 ML SYRINGE ONE ×4 (13:09→15:00)
[2024-03-08] MEDS ORDERED: Protamine Sulfate 50 MG/5 ML VIAL ONE (15:00)
[2024-03-08] MEDS ORDERED: Albumin 5% 500 ML ONE (15:06)
[2024-03-08] MEDS: Sodium Chloride 0.9% 250 ML IV SCH (22:00)
[2024-03-08 23:27] LABS: Base Excess (BEa) -15.7 mEq/L (-2.0 to +3.0); Calcium, Ionized (arterial) 0.91 mmol/L (1.12-1.30); Carboxyhemoglobin (COHb) 0.8 gm% (0.0-3.0); Hematocrit-ABG 21 % (42.0-52.0); Hemoglobin (Hb) 7.3 g/dL (14.0-18.0); O2 Tension (PaO2), arterial 134.8 mmHg (> 80.0); Potassium - ABG Lab 5.38 mmol/L (3.70-5.30)
[2024-03-08] MEDS ORDERED: EPINEPHrine 1 MG/10 ML Abboject SYRINGE ONE (23:27)
[2024-03-08] MEDS ORDERED: Amiodarone 150 MG/3 ML VIAL ONE (23:27)
[2024-03-08 23:30] LABS: ALV-art Gradient 120.025 mmHg (0-20); Actual Bicarbonate (HCO3a) 10.2 mEq/L (22-28); CO2 Tension 24.3 mmHg (35.0-45.0); Puncture Site Arterial Line
[2024-03-08] MEDS ORDERED: Vasopressin In 0.9 % NaCl 40 UNIT in Premix 1 BAG IV SCH (23:45)
[2024-03-08] MEDS: Sodium Bicarb 50 mEq/50 ML VIAL IVP SCH (23:45)
[2024-03-08] MEDS: Sodium Bicarb 50 MEQ/50 ML Abboject 8.4% SYRINGE ONE ×2 (23:45)
[2024-03-08] MEDS: EPINEPHrine 4 MG in Dextrose 5% in Water 250 ML IVPB SCH (23:47)
[2024-03-09 00:34] VITALS: TEMP 98.1
[2024-03-09 00:34] LABS: Base Excess (BEa) -19.2 mEq/L (-2.0 to +3.0); CO2 Tension 31.6 mmHg (35.0-45.0); Calcium, Ionized (arterial) 0.88 mmol/L (1.12-1.30); Carboxyhemoglobin (COHb) 0.2 gm% (0.0-3.0); Hematocrit-ABG 27 % (42.0-52.0); Hemoglobin (Hb) 9.1 g/dL (14.0-18.0); O2 Tension (PaO2), arterial 101.8 mmHg (> 80.0); Potassium - ABG Lab 4.27 mmol/L (3.70-5.30); pH, Arterial 7.085 (7.35-7.45)
[2024-03-09 00:35] LABS: Actual Bicarbonate (HCO3a) 9.3 mEq/L (22-28); Puncture Site Arterial Line
[2024-03-09] MEDS: Lactated Ringer's 1,000 ML IV SCH (01:10)
[2024-03-09] MEDS: Albumin 25% 25 GM (100 mL) BOT IVPB SCH (01:19)
[2024-03-09 01:30] LABS: #Basophils Less than 0.03 10x3/uL (0.0-0.2); #Eosinophils Less than 0.03 10x3/uL (0.0-0.7); %Basophils 0.1 % (0.0-1.0); %Lymphocytes 13.1 % (21.0-51.0); %Monocytes 7.2 % (0.0-10.0); %Neutrophils 78.2 % (42.0-75.0); Hematocrit 24.5 % (42.0-52.0); Hemoglobin 7.7 g/dL (14.0-18.0); Mean Corpuscular HGB CONC 31.4 g/dL (32.0-36.0); Mean Corpuscular Hemoglobin 30.2 pg (27.0-31.0); Mean Corpuscular Volume 96.1 fL (78.0-98.0); Mean Platelet Volume 11.4 fL (7.4-10.4); Platelet Count 123 10x3/uL (130-400); RBC Distribution Width 13.2 % (11.5-14.5); Red Blood Cell (RBC) Count 2.55 mill/uL (4.70-6.10)
[2024-03-09 01:35] LABS: INR-International Normal Ratio 2.8; PTT 45.9 sec (22.9-36.1); Prothrombin Time 29.8 sec (12.0-14.7)
[2024-03-09] MEDS: Sodium Bicarbonate 150 MEQ in Sterile Water 1,000 ML IV SCH (01:40)
[2024-03-09] MEDS: EPINEPHrine 1 MG/10 ML Abboject SYRINGE ONE (03:45)
== END 2024-03-09 05:20 | disposition expired | DRG 215 ==
LOC: CCL 02:01 → CCU 03:48
PROVIDERS: ADMIT Internal Medicine Cardiovascular Disease; ATTEND Internal Medicine Cardiovascular Disease
PROC: 027034Z Dilation of Coronary Artery, One Artery with Drug-eluting Intraluminal Device, Percutaneous Approach (ICD-10-PCS; principal; 2024-03-06)
PROC: 02703ZZ Dilation of Coronary Artery, One Artery, Percutaneous Approach (ICD-10-PCS; 2024-03-06)
PROC: 4A023N7 Measurement of Cardiac Sampling and Pressure, Left Heart, Percutaneous Approach (ICD-10-PCS; 2024-03-06)
PROC: B2111ZZ Fluoroscopy of Multiple Coronary Arteries using Low Osmolar Contrast (ICD-10-PCS; 2024-03-06)
PROC: B2131ZZ Fluoroscopy of Multiple Coronary Artery Bypass Grafts using Low Osmolar Contrast (ICD-10-PCS; 2024-03-06)
PROC: B2181ZZ Fluoroscopy of Left Internal Mammary Bypass Graft using Low Osmolar Contrast (ICD-10-PCS; 2024-03-06)
PROC: 4A133R1 Monitoring of Arterial Saturation, Peripheral, Percutaneous Approach (ICD-10-PCS; 2024-03-06)
PROC: 3E02340 Introduction of Influenza Vaccine into Muscle, Percutaneous Approach (ICD-10-PCS; 2024-03-06)
PROC: 02HA3RZ Insertion of Short-term External Heart Assist System into Heart, Percutaneous Approach (ICD-10-PCS; 2024-03-08)
PROC: 5A0221D Assistance with Cardiac Output using Impeller Pump, Continuous (ICD-10-PCS; 2024-03-08)
PROC: 02HW3RZ Insertion of Short-term External Heart Assist System into Thoracic Aorta, Descending, Percutaneous Approach (ICD-10-PCS; 2024-03-08)
PROC: 5A0221D Assistance with Cardiac Output using Impeller Pump, Continuous (ICD-10-PCS; 2024-03-08)
PROC: 03U Upper Arteries, Supplement (ICD-10-PCS; 2024-03-08)
PROC: 02PA3RZ Removal of Short-term External Heart Assist System from Heart, Percutaneous Approach (ICD-10-PCS; 2024-03-08)
PROC: 06HM33Z Insertion of Infusion Device into Right Femoral Vein, Percutaneous Approach (ICD-10-PCS; 2024-03-08)
PROC: 5A12012 Performance of Cardiac Output, Single, Manual (ICD-10-PCS; 2024-03-08)
PROC: 03HY32Z Insertion of Monitoring Device into Upper Artery, Percutaneous Approach (ICD-10-PCS; 2024-03-08)
PROC: 3E033XZ Introduction of Vasopressor into Peripheral Vein, Percutaneous Approach (ICD-10-PCS; 2024-03-08)
PROC: 30233N1 Transfusion of Nonautologous Red Blood Cells into Peripheral Vein, Percutaneous Approach (ICD-10-PCS; 2024-03-08)
DX: I21.29 ST elevation (STEMI) myocardial infarction involving other sites (principal); K72.00 Acute and subacute hepatic failure without coma; G93.41 Metabolic encephalopathy; T82.867A Thrombosis due to cardiac prosthetic devices, implants and grafts, initial encounter; K92.0 Hematemesis; I13.0 Hypertensive heart and chronic kidney disease with heart failure and stage 1 through stage 4 chronic kidney disease, or unspecified chronic kidney disease; N17.9 Acute kidney failure, unspecified; E87.21 Acute metabolic acidosis; Z66 Do not resuscitate; I25.10 Atherosclerotic heart disease of native coronary artery without angina pectoris; I25.5 Ischemic cardiomyopathy; E78.5 Hyperlipidemia, unspecified; Y71.2 Prosthetic and other implants, materials and accessory cardiovascular devices associated with adverse incidents; Y84.0 Cardiac catheterization as the cause of abnormal reaction of the patient, or of later complication, without mention of misadventure at the time of the procedure; R57.0 Cardiogenic shock; I50.9 Heart failure, unspecified; N18.9 Chronic kidney disease, unspecified; E03.9 Hypothyroidism, unspecified; R00.0 Tachycardia, unspecified; E10.22 Type 1 diabetes mellitus with diabetic chronic kidney disease; R00.1 Bradycardia, unspecified; Z90.49 Acquired absence of other specified parts of digestive tract; Z95.1 Presence of aortocoronary bypass graft; Z79.4 Long term (current) use of insulin; Z79.899 Other long term (current) drug therapy; Z79.82 Long term (current) use of aspirin; Z79.84 Long term (current) use of oral hypoglycemic drugs; Z79.890 Hormone replacement therapy; Z23 Encounter for immunization
CPT/HCPCS: 33990; 36415; 36416; 36430; 36556; 71045; 80053; 80061; 80202; 81001; 82533; 82805; 83605; 83735; 83880; 84100; 84145; 84439; 84443; 84481; 84484; 85025; 85347; 85610; 85730; 86850; 86900; 86901; 87040; 92920; 92941; 93005; 93010; 93306; 93454; 93455; 93458; 94002; 94003; A4217; C1713; C1725; C1751; C1757; C1758; C1769; C1874; C1887; C1889; C9606; G0278; J0153; J0171; J0282; J0461; J0665; J0692; J0696; J1644; J1815; J2060; J2250; J2272; J2405; J2470; J2550; J2704; J2720; J3010; J3370; J7030; J7050; J7070; J7120; P9016; P9045; P9047; Q0162; Q9967